=== PATIENT | female | born 1935 | race Caucasian/White ===

== ENCOUNTER → 2023-06-11 12:45 | Outpatient (REF) | payer MEDICARE, OTHER, SELFPAY ==
[2023-06-11 18:17] LABS: % Basophils 0.5 % (0-2); % Eosinophils 0.2 % (0-6); % Immature Granulocytes 0.4 % (0-0.5); % Lymphocytes 9.4 % (20.5-51.1); % Monocytes 7.1 % (1.7-9.3); % Neutrophils 82.4 % (42.2-75.2); Absolute Basophils 0.1 10^3/uL (0-0.2); Absolute Lymphocytes 0.9 10^3/uL (1.2-3.4); Absolute Monocytes 0.7 10^3/uL (0.1-0.6); Absolute Neutrophils 7.5 10^3/uL (1.4-6.5); Hematocrit 36.8 % (37.0-47.0); Hemoglobin 12.5 g/dL (12.0-16.0); Mean Corpuscular Volume 88.2 fL (81.0-99.0); Mean Platelet Volume 10.6 fL (7.4-10.4); Nucleated Red Blood Cells % 0 %; Platelet Count 224 10^3/uL (130-400); Red Blood Cell Count 4.17 10^6/uL (4.20-5.40); Red Cell Dist. Width 14.6 % (11.5-14.5); White Blood Cell Count 9.1 10^3/uL (4.8-10.8)
[2023-06-11 18:25] LABS: ALT (SGPT) 13 U/L (0-35); AST (SGOT) 19 U/L (14-36); Albumin 3.9 g/dl (3.5-5.0); Alkaline Phosphatase 66 U/L (38-126); Blood Urea Nitrogen 28 mg/dl (7-17); Calcium 9.8 mg/dl (8.4-10.2); Carbon Dioxide 25 mmol/L (22-30); Chloride 102 mmol/L (98-107); Glucose 90 mg/dl (70-99); Iron 60 ug/dl (37-170); Sodium 132 mmol/L (135-145); Total Bilirubin 0.6 mg/dl (0.2-1.3); Total Protein 6.1 g/dl (6.3-8.2); eGFR > 60.00
[2023-06-11 18:34] LABS: Percent Saturation 18 % (20-50); Total Iron Binding Capacity 322 ug/dl (265-497)
[2023-06-11 18:47] LABS: Potassium 4.3 mmol/L (3.5-5.1)
[2023-06-11 18:56] LABS: TSH Reflex To Free T4 1.58 uIU/ml (0.47-4.68)
[2023-06-11 19:00] LABS: Ferritin 21.4 ng/ml (11.1-264.0)
== END ==
LOC: CLAB 12:45
PROVIDERS: ATTENDING PHYSICIAN Family Medicine
DX: I10 Essential (primary) hypertension (principal); D50.8 Other iron deficiency anemias
CPT/HCPCS: 80053; 82728; 83540; 83550; 84443; 85025

== ENCOUNTER 2023-08-28 23:03 | Inpatient (IN) | payer MEDICARE, OTHER, SELFPAY ==
[2023-08-28] VITALS (8 sets, daily range): BP systolic 96–109; BP diastolic 57–78; BMI 21.0
[2023-08-28 15:04] LABS: % Basophils 0.2 % (0-2); % Immature Granulocytes 0.5 % (0-0.5); % Lymphocytes 1.5 % (20.5-51.1); % Monocytes 5.3 % (1.7-9.3); % Neutrophils 92.5 % (42.2-75.2); Absolute Immature Granulocytes 0.1 10^3/uL (0-0.05); Absolute Lymphocytes 0.3 10^3/uL (1.2-3.4); Absolute Monocytes 1.2 10^3/uL (0.1-0.6); Absolute Neutrophils 20.6 10^3/uL (1.4-6.5); Hemoglobin 14.3 g/dL (12.0-16.0); Mean Corpuscular Hgb 28.9 pg (27.0-31.0); Mean Platelet Volume 10.5 fL (7.4-10.4); Nucleated Red Blood Cells % 0 %; Platelet Count 347 10^3/uL (130-400); Red Blood Cell Count 4.94 10^6/uL (4.20-5.40); Red Cell Dist. Width 13.8 % (11.5-14.5); White Blood Cell Count 22.3 10^3/uL (4.8-10.8)
[2023-08-28 15:48] LABS: ALT (SGPT) 45 U/L (0-35); AST (SGOT) 94 U/L (14-36); Albumin 4.1 g/dl (3.5-5.0); Alkaline Phosphatase 79 U/L (38-126); Blood Urea Nitrogen 39 mg/dl (7-17); Calcium 9.2 mg/dl (8.4-10.2); Carbon Dioxide 19 mmol/L (22-30); Chloride 105 mmol/L (98-107); Estimated Creatinine Clearance 33 ml/min; Glucose 201 mg/dl (70-99); Potassium 3.8 mmol/L (3.5-5.1); Sodium 136 mmol/L (135-145); Total Bilirubin 1.3 mg/dl (0.2-1.3); Total Protein 6.3 g/dl (6.3-8.2); eGFR 48.33
--- NOTE | 2023-08-28 16:55 | ED.GENMED ---
History of Present Illness
<Windy Christie MD, Resident - Last Filed: 08/28/23 19:59>
General
Chief Complaint: Weakness
Time Seen by Provider: 08/28/23 16:03
History of Present Illness
History of Present Illness:
87-year-old female with history of hypertension, RBBB B and severe AAS presented to the ED with weakness noted by her aide(patient does not recall why her aide made this call and why she is here in the ED). Patient states that Salma who is her
home health might have called the ambulance as the patient was not as alert as she should be. She denies shortness of breath, chest pain, fever, chills, cough, palpitations, dysuria.
Past History
<Windy Christie MD, Resident - Last Filed: 08/28/23 19:59>
Past History
ED Past Medical History: HTN and Other (osteoporosis , Anemia, L arm cellulitis)
ED Past Surgical History: None
Social History
Tobacco: Non-smoker
Alcohol: None
Personal:
Living: alone
Employment: Retired
Family History
Family History: Cancer (Colon cancer)
Phy Exam
<Windy Christie MD, Resident - Last Filed: 08/28/23 19:59>
General Physical Exam
General Presentation: no apparent distress
General Habitus: elderly
General Mental: alert
General Hydration: dry mucous membranes
Cardiovascular Exam
Cardiovascular Exam: regular rate/rhythm
Pulmonary Exam
Pulmonary Exam: lungs clear
Gastrointestinal Exam
Gastrointestinal Exam: normal bowel sounds, non tender and soft
Skin Exam
Skin Exam: warm/dry (warm), erythema and other (bullae with clear fluid present on left upper thigh on lateral side. Erythematous sacral patch)
Course
<Windy Christie MD, Resident - Last Filed: 08/28/23 19:59>
Orders/Labs/Results
Orders:
Orders
08/28/23 14:51
CMP [Comprehensive Metabolic Panel] Urgent
Complete Blood Count/With Diff Urgent
Creatine Phosphokinase Urgent
Comment: ADD ON
08/28/23 16:43
Chest [CR Chest - 2 Views ] Urgent
Comment:
Reason For Exam: confusion
08/28/23 16:48
Add On- LAB Urgent
Tests Added?: lactate
08/28/23 16:51
0.9% Sodium Chloride 250 ml [Nss] 250 ml IV BOLUS
08/28/23 17:54
Lactate Level [Lactic Acid] Urgent
TSH Reflex To Free T4 Urgent
Blood Culture Urgent
ANNIE Source: Blood/Venous
Specimen Description:
08/28/23 18:55
0.9% Sodium Chloride 250 ml [Nss] 250 ml IV BOLUS
08/28/23 19:00
Urine Culture Reflexed from UA [Urinalysis Reflex To Culture] Urgent
Date Specimen was Collected: 08/28/23
Time Specimen was Collected: 18:59
Urine Microscopic Reflex Cult Urgent
Urine Culture Urgent
ANNIE Source: U
Specimen Description:
Date Specimen was Collected: 08/28/23
Time Specimen was Collected: 18:59
08/28/23 19:34
CefTRIAXone [Rocephin] 1,000 mg IV NOW STA
08/28/23 20:04
Add On- LAB Urgent
Tests Added?: CPK
08/28/23 20:14
CT Head W/o Iv Contrast Urgent
Comment:
Reason For Exam: Fall, Change in MS
Abnormal Lab Results
08/28/23 08/28/23
14:51 19:00
WBC 22.3 H 10^3/uL
(4.8-10.8)
MPV 10.5 H fL
(7.4-10.4)
Abs Immat Gran (auto) 0.1 H 10^3/uL
(0-0.05)
Absolute Neuts (auto) 20.6 H 10^3/uL
(1.4-6.5)
Absolute Lymphs (auto) 0.3 L 10^3/uL
(1.2-3.4)
Absolute Monos (auto) 1.2 H 10^3/uL
(0.1-0.6)
Neutrophils % 92.5 H %
(42.2-75.2)
Lymphocytes % 1.5 L %
(20.5-51.1)
Carbon Dioxide 19 L mmol/L
(22-30)
BUN 39 H mg/dl
(7-17)
Creatinine 1.1 H mg/dL
(0.6-1.0)
Glucose 201 H mg/dl
(70-99)
AST 94 H U/L
(14-36)
ALT 45 H U/L
(0-35)
Urine Ketones 2+ A
(Negative)
Ur Occult Blood Reflex 1+ A
(Negative)
Leukocyte Esterase Rfl 2+ A
(Negative)
Urine WBC (Reflex) 70-80 A /HPF
(0-5)
Urine Bacteria (Reflex) Few A
(Negative)
Urine Yeast Few A
(Negative)
08/28/23 14:51
08/28/23 14:51
Vital Signs
Initial and Last Documented VS:
Initial Vital Signs
Temp Pulse Resp BP Pulse Ox
98.5 F 112 18 102/78 97
08/28/23 14:42 08/28/23 14:42 08/28/23 14:42 08/28/23 14:42 08/28/23 14:42
Last Documented Vital Signs
Temp Pulse Resp BP Pulse Ox
98.5 F 84 21 109/64 93
08/28/23 14:42 08/28/23 19:30 08/28/23 19:30 08/28/23 19:00 08/28/23 19:15
<Harley Jarquin, DO - Last Filed: 08/28/23 20:41>
Orders/Labs/Results
Orders:
Orders
08/28/23 14:51
CMP [Comprehensive Metabolic Panel] Urgent
Complete Blood Count/With Diff Urgent
Creatine Phosphokinase Urgent
Comment: ADD ON
08/28/23 16:43
Chest [CR Chest - 2 Views ] Urgent
Comment:
Reason For Exam: confusion
08/28/23 16:48
Add On- LAB Urgent
Tests Added?: lactate
08/28/23 16:51
0.9% Sodium Chloride 250 ml [Nss] 250 ml IV BOLUS
08/28/23 17:54
Lactate Level [Lactic Acid] Urgent
TSH Reflex To Free T4 Urgent
Blood Culture Urgent
ANNIE Source: Blood/Venous
Specimen Description:
08/28/23 18:55
0.9% Sodium Chloride 250 ml [Nss] 250 ml IV BOLUS
08/28/23 19:00
Urine Culture Reflexed from UA [Urinalysis Reflex To Culture] Urgent
Date Specimen was Collected: 08/28/23
Time Specimen was Collected: 18:59
Urine Microscopic Reflex Cult Urgent
Urine Culture Urgent
ANNIE Source: U
Specimen Description:
Date Specimen was Collected: 08/28/23
Time Specimen was Collected: 18:59
08/28/23 19:34
CefTRIAXone [Rocephin] 1,000 mg IV NOW STA
08/28/23 20:04
Add On- LAB Urgent
Tests Added?: CPK
08/28/23 20:14
CT Head W/o Iv Contrast Urgent
Comment:
Reason For Exam: Fall, Change in MS
Abnormal Lab Results
08/28/23 08/28/23
14:51 19:00
WBC 22.3 H 10^3/uL
(4.8-10.8)
MPV 10.5 H fL
(7.4-10.4)
Abs Immat Gran (auto) 0.1 H 10^3/uL
(0-0.05)
Absolute Neuts (auto) 20.6 H 10^3/uL
(1.4-6.5)
Absolute Lymphs (auto) 0.3 L 10^3/uL
(1.2-3.4)
Absolute Monos (auto) 1.2 H 10^3/uL
(0.1-0.6)
Neutrophils % 92.5 H %
(42.2-75.2)
Lymphocytes % 1.5 L %
(20.5-51.1)
Carbon Dioxide 19 L mmol/L
(22-30)
BUN 39 H mg/dl
(7-17)
Creatinine 1.1 H mg/dL
(0.6-1.0)
Glucose 201 H mg/dl
(70-99)
AST 94 H U/L
(14-36)
ALT 45 H U/L
(0-35)
Urine Ketones 2+ A
(Negative)
Ur Occult Blood Reflex 1+ A
(Negative)
Leukocyte Esterase Rfl 2+ A
(Negative)
Urine WBC (Reflex) 70-80 A /HPF
(0-5)
Urine Bacteria (Reflex) Few A
(Negative)
Urine Yeast Few A
(Negative)
08/28/23 14:51
08/28/23 14:51
Vital Signs
Initial and Last Documented VS:
Initial Vital Signs
Temp Pulse Resp BP Pulse Ox
98.5 F 112 18 102/78 97
08/28/23 14:42 08/28/23 14:42 08/28/23 14:42 08/28/23 14:42 08/28/23 14:42
Last Documented Vital Signs
Temp Pulse Resp BP Pulse Ox
98.5 F 84 21 109/64 93
08/28/23 14:42 08/28/23 19:30 08/28/23 19:30 08/28/23 19:00 08/28/23 19:15
<Windy Christie MD, Resident - Last Filed: 08/28/23 19:59>
*Critical Care Note
Total Time (30-74mins, 75-104mins- exclusive of procedures): Not Applicable
<Windy Christie MD, Resident - Last Filed: 08/28/23 19:59>
Update Note
Update Note:
Patient presents to ED with fatigue, confused as noted by the aide.
- Patients WBC is elevated which could be the potential reason for confusion.
- TSH, lactate, CHEST x RAY, blood cultures ordered.
- IV fluid
- Suspect Cellulitis of left LE. Starting on IV Ceftriaxone stat.
-Lactate levels are normal and patient does not look septic however physical examination suspect cellulitis of left lower extremity therefore plan is to admit the patient. Patient is non ambulatory, erythematous sacral skin patch present.
ED Attending Note
<Windy Christie MD, Resident - Last Filed: 08/28/23 19:59>
-
Portions of this chart may have been created with voice recognition software.� Occasional wrong word or��sound alike� substitutions may have occurred due to the inherent limitations of voice recognition software.
<Harley Jarquin DO - Last Filed: 08/28/23 20:41>
ED Attending Note
Patient seen and examined by attending physician: Yes
I performed a history and physical exam of patient and discussed management with resident, I reviewed resident's note and agree with documented findings and plan of care.: Yes
ED Attending Note:
Patient is a 87-year-old female presents to the emergency department on the advice of home health after the patient was found to be have increasing weakness and confusion. Patient does not have fever and really does not have any complaints other
than feeling weak. Patient denies headache. Patient denies fever or chills, nasal congestion, sore throat or cough. Patient denies any chest pain, short shortness of breath or palpitations. Patient denies abdominal pain, nausea, vomiting or
diarrhea. Patient denies any joint or back pain. On physical exam patient is elderly and confused. Head is normocephalic and atraumatic. Heart is regular lungs are clear. Chest is nontender. Abdomen is nontender. Extremities without edema but
skin breakdown and what appears to be cellulitis of the left hip region. Patient has an elevated white blood cell count of 22,000. This is also a shift to left. Patient's liver enzymes are mildly elevated the rest of the patient's laboratory
evaluation is unremarkable. Given the fact the patient has increasing confusion and disorientation and lives on her own. Patient will be admitted for treatment of cellulitis in light of the 22,000 white count.
Discharge Plan
Departure
Patient Disposition: Admit
Date of Disposition: 08/28/23
Time of Disposition: 19:39
Presentation/result/management discussed w/ accepting MD/DO: Hospitalist
Discharge Problem:
Cellulitis
Prescriptions:
No Action
enalapril maleate 10 MG tablet
10 mg PO DAILY
omeprazole 20 mg capsule,delayed release(DR/EC)
20 mg PO DAILY
coenzyme Q10 [Co Q-10] 100 mg Capsule
100 mg PO DAILY
gy-ren-HU-Yb-Ds-axdzbyi-lutein 0.4-162-18 mg Tablet
1 tab PO DAILY
ferrous sulfate 27 mg iron Tablet
27 mg PO DAILY
PreserVision AREDS-2 250-90-40-1 mg Capsule
1 tab PO DAILY
vitamin C-biotin 50 mg -1,250 mcg Tablet,Chewable
1 tab PO DAILY
Colon Health
3 billion cells PO DAILY
Paxlovid 300 mg (150 mg x 2)-100 mg Tablets,Dose Pack
1 ea PO BID Qty: 0 0RF
Rx Instructions:
last day 01/05/23
aspirin [Children's Aspirin] 81 mg Tablet,Chewable
81 mg PO DAILY Qty: 0 0RF
Referrals:
Elly Barnhart MD [Family Provider] -
Interventions
Interventions:
*Risk Screen - Suicide Last Done: 08/28/23 19:52
*General Assessment Last Done: 08/28/23 14:42
*Neglect/Abuse Screening Last Done: 08/28/23 19:52
ED- Fall Risk Assessment Last Done: 08/28/23 18:13
*ED COVID-19 Vaccine History Last Done: 08/28/23 14:42
ED- Cardiac Assessment Last Done: 08/28/23 18:13
ED- Neurological Assessment Last Done: 08/28/23 18:13
ED- Pulmonary Assessment Last Done: 08/28/23 18:13
Discharge Date and Time
Print Language: NIGERIEN
[2023-08-28] MEDS: NSS 250 IV ×2 (17:56→19:07)
[2023-08-28 18:24] LABS: Lactic Acid 1.4 mmol/L (0.7-2.0)
[2023-08-28 18:59] LABS: TSH Reflex To Free T4 1.24 uIU/ml (0.47-4.68)
[2023-08-28 19:07] LABS: Urine Albumin Trace (Neg - Trace); Urine Bilirubin Negative (Negative); Urine Character Clear (Clear); Urine Color Yellow; Urine Glucose Negative (Negative); Urine Ketone 2+ (Negative); Urine Leukocyte 2+ (Negative); Urine Nitrite Negative (Negative); Urine Occult Blood 1+ (Negative); Urine Urobilinogen Negative (Neg - 1+)
[2023-08-28 19:19] LABS: Urine Squamous Cell >30 /LPF (Few)
[2023-08-28 19:20] LABS: Urine Bacteria Few (Negative); Urine White Cell 70-80 /HPF (0-5); Urine Yeast Few (Negative)
[2023-08-28 19:21] LABS: Urine Red Blood Cell 0-2 /HPF (0-2)
--- NOTE | 2023-08-28 19:59 | EDRN ---
Spoke with pt daughter Melonie, states that pt had fall on August 09, EMS was called and pt was checked out. Daughter states that pt had a second fall today prompting caregiver to bring pt in.
[2023-08-28] MEDS: ROCEPHIN 1000 MG IV (20:09)
[2023-08-28 20:47] LABS: Creatine Phosphokinase 1598 U/L (30-135)
--- NOTE | 2023-08-28 22:32 | HPS.HSE ---
Family Physician
-
Family Physician: Elly Barnhart
Chief Complaint
-
Found down
History of Present Illness
Patient is an 87y F with PMH significant for hypertension, dementia and GERD who presents to ED for evaluation after being found down at home. History obtained from ED staff via daughter over the phone. Patient has suffered falls the past two
days and today was found on the floor by her home health aide. Her daughter is currently traveling outside the country.
Patient has no recollection of this fall. The fall was unwitnessed. production aide found that patient seemed more confused than usual and she presented to the ED for evaluation.
At the time of my examination, patient offers no complaints. She specifically denies any pain. She denies chest pain, dyspnea, cough, fevers / chills, etc.
Patient seems confused and is unable to explain why / how she came to be at the hospital.
Medical History
Past Medical History
Past Medical History: Reports Other
Additional Past Medical History:
Severe Aortic Stenosis
Essential Hypertension
PUD / GI Bleed
Osteoporosis
Past Surgical History: Reports Other
Additional Past Surgical History:
Appendectomy
Hernia Repair
Social History
Tobacco: Non-smoker
Alcohol: None
Personal:
Living: Alone
Family History
Family History: Not pertinent
Allergies / Home Medications
Allergies reflects when Allergies were last updated in [facility].
Home Medications with original date entered in [facility]
Allergy/Medication List:
Patient is unable to confirm / verify her current med list.
If medication reconciliation has not been performed, why?: Medication List N/A
Review of Systems
-
History Source: Patient
A 12 point ROS was completed and negative except as noted: Yes
Constitutional: Denies Fever or Chills
Respiratory: Denies Cough or Trouble Breathing
Cardiac: Denies Chest Pain or Palpitations
Abdomen/GI: Denies Abdominal Pain, Nausea, Vomiting or Diarrhea
: Denies Dysuria or Frequency
Musculoskeletal: Denies Joint Pain or Edema
Neurological: Denies Dizzy or Headache
Physical Exam
Vital Signs
Vital Signs
Temp Pulse Resp BP Pulse Ox
98.5 F 84 21 109/64 93
08/28/23 14:42 08/28/23 19:30 08/28/23 19:30 08/28/23 19:00 08/28/23 19:15
Physical Exam
General: Other (87y F in no acute distress.)
HEENT: PERRLA and Other (Dry MM.)
Respiratory: Clear; No Wheezes, Rales or Rhonchi
Cardiac: S1/S2, Regular Rhythm and Murmur (III/ SANJAY)
GI: Soft, Non Tender, Non Distended and Normal Bowel Sounds
Musculoskeletal: No Clubbing, No Cyanosis and Other (No edema. Skin changes suggesting prior degree of edema since improved.)
Skin: Other (Mild erythema and blistering lesion over the L greater trochanter region. Not indurated or tender. Sacral area with superficial breakdown / erythema.)
Neuro: Awake, Alert and Nonfocal/grossly intact; No Oriented
Laboratory Results
-
08/28/23 14:51
08/28/23 14:51
Laboratory Results
Lactic Acid 1.4 mmol/L (0.7-2.0) 08/28/23 17:54
Total Bilirubin 1.3 mg/dl (0.2-1.3) 08/28/23 14:51
AST 94 U/L (14-36) H 08/28/23 14:51
ALT 45 U/L (0-35) H 08/28/23 14:51
Alkaline Phosphatase 79 U/L (38-126) 08/28/23 14:51
Impression/Plan
-
A/P: Patient is an 87y F with PMH significant for hypertension and ? mild dementia who presents to ED for evaluation after being 'found down' by home health aide.
Unwitnessed Fall
Rhabdomyolysis
CASSANDRA
Pigment Nephropathy
- Admit for further evaluation and treatment.
- Fairly significant CPK elevation considering body habitus.
- SCr = 1.1 compared to baseline of 0.6.
- + blood on UA with paucity of RBCs.
- IVF support overnight and follow for improvement in renal function, CPK levels, etc.
- Follow for any worsening pain, etc.
- Hold THONY inhibitor acutely.
- CT head done in the ED given unwitnessed fall and change in mental status was unremarkable.
Leukocytosis
- ? stress response +/- volume depletion, etc.
- No findings to suggest acute infectious process for me.
- Hold on further abx for now.
- Follow-up any positive culture data.
- Monitor for any focal complaints / symptoms.
Wounds
- Skin lesions / erythema / breakdown over the sacrum and the L hip.
- Neither area appears acutely infected - suspect L hip is due to fall / trauma.
- Wound Care eval for local care recommendations.
Benign Hypertension
- BP presently on the lower side.
- Hold all PO meds for now.
- IVF as noted above.
Cognitive Impairment
- Mental status change is described as new, but suspect some degree of baseline impairment here.
- Follow for any acute changes, delirium, etc.
- Follow for return to stated baseline.
DVT Prophylaxis: SCDs
Code Status: DNR
[2023-08-29] VITALS (8 sets, daily range): BP systolic 105–130; BP diastolic 55–82; PULSE 71–90; O2SAT 96; BMI 20.6; BMI 20.2
[2023-08-29] MEDS: NSS 1000 IV ×3 (00:18→19:10)
[2023-08-29] MEDS: TYLENOL 650 MG PO ×2 (03:44→19:32)
--- NOTE | 2023-08-29 05:30 | PTCARENOTE ---
Received pt from ED via stretcher with belongings. Telemetry order: SR w/ BBC on monitor, HR 60-70s, BP 128/61, RR 16, afebrile, pox 98% room air. Pt c/o discomfort to her left hip and left shoulder. Orthostatic BP unable to perform d/t pt's
weakness and pain. NSS infusing at 125ml/hr through RAC. Pt pleasantly confused but easily redirected. Pt asks several times why she is in hospital. Pt states her , age and place correctly (although she states she was informed multiple times that
she is at [facility]). Neurochecks ordered Q4H. Bed alarm in place.
Upon arrival to the floor, pt noticeable disheveled and unkempt. Attends saturated. Hygiene performed.
Pt bladder scanned for 674ml and straight cath for 750ml dark yellow urine. Pt tolerated well.
Skin assessment: Left hip bruising w/ blister- adaptic/ foam applied, Left shoulder abrasion- foam applied, Red/ Purple Ecchymotic areas to pt's left hand, arm, and upper back. Yellow scattered bruising to patients right upper back. Sacrum w/ foam
(applied in ED) that this RN removed to assess a pressure ulcer Stage 2, pink wound bed, small serosanguineous drainage- Alginate and foam applied. Bilateral heels- nonblanchable- foams applied and elevated on pillows. Foams applied to both elbows
for protection. Air overlay in place. Pt placed on turning schedule.
Pt states that she lives alone. Salma, from [facility], come out twice a week for ADLs and appointments. Pt states she receives frozen meals from a local [employer]. Pt's daughter lives in [place]. According to External medical summary
report pg 4, pt was referred Palliative care. PMH obtained by hospital records. Pt unsure of medications.
Pt oriented to her room. Call morris within reach.
[2023-08-29 07:39] LABS: Mean Corp Hgb Conc. 34.5 g/dL (33.0-37.0); Mean Corpuscular Hgb 29.1 pg (27.0-31.0); Mean Corpuscular Volume 84.2 fL (81.0-99.0); Mean Platelet Volume 10.7 fL (7.4-10.4); Platelet Count 260 10^3/uL (130-400); Red Blood Cell Count 3.92 10^6/uL (4.20-5.40); Red Cell Dist. Width 13.7 % (11.5-14.5); White Blood Cell Count 9.4 10^3/uL (4.8-10.8)
[2023-08-29] MEDS: HEPARIN 5000 UNITS SC ×2 (07:57→19:31)
[2023-08-29 08:12] LABS: Blood Urea Nitrogen 41 mg/dl (7-17); Calcium 8.2 mg/dl (8.4-10.2); Carbon Dioxide 22 mmol/L (22-30); Chloride 112 mmol/L (98-107); Creatine Phosphokinase 740 U/L (30-135); Estimated Creatinine Clearance 50 ml/min; Glucose 92 mg/dl (70-99); Potassium 3.5 mmol/L (3.5-5.1); Sodium 137 mmol/L (135-145); eGFR > 60.00
[2023-08-29 08:34] LABS: Hemoglobin 11.4 g/dL (12.0-16.0)
--- NOTE | 2023-08-29 09:39 | W.PN.HOSP.TC ---
Today's Communication/Plan
-
see A/P
Assessment / Plan
Assessment / Plan
HPI: 87 yo F with PMH significant for hypertension, dementia, GERD who presented to ED for evaluation after being found down at home. History obtained from ED staff via daughter over the phone. Patient has suffered falls the past two days and was
found on the floor by her home health aid. Her daughter is currently traveling outside the country.
Patient has no recollection of the fall. The fall was unwitnessed. production aide found that patient seemed more confused than usual and she presented to the ED for evaluation.
She denies to pain. She denies chest pain, dyspnea, cough, fevers / chills, etc.
Patient seemed confused and is unable to explain why / how she came to be at the hospital.
A/P:
# Unwitnessed Fall and found on floor
# Rhabdomyolysis
# CASSANDRA, resolved
# Pigment Nephropathy
CT head done in the ED given unwitnessed fall and change in mental status was unremarkable.
CPK 1500 on admission, today at 740
SCr 1.1 on admission, today at 0.7 which is at baseline
Cont IVF support
Follow CPK level
Hold THONY inhibitor acutely.
PT OT eval
# Reactive Leukocytosis, resolved
No findings to suggest acute infectious process for me.
Hold on further abx for now.
Follow-up on urine and blood culture data.
# Skin Wounds
Skin lesions / erythema / breakdown over the sacrum and the L hip.
Neither area appears acutely infected - suspect L hip is due to fall / trauma.
Wound Care eval for local care recommendations.
# Benign Hypertension
BP presently on the lower side.
Hold all PO meds for now.
IVF as noted above.
# Cognitive Impairment, likely undiagnosed dementia
CT head done in the ED given unwitnessed fall and change in mental status was unremarkable.
She is awake/alert, but not orientated
Mental status change is described as new, but suspect some degree of baseline impairment.
Follow for any acute changes, delirium, etc.
Follow for return to stated baseline.
# Systolic murmur
Check routine echo
DVT Prophylaxis: SCDs
Code Status: DNR
Dispo: PT OT eval
Anticipated Discharge: 24 - 48 hours
Subjective/Interval History
-
Date of Service: August 29, 2023
Objective Data
-
Labs:
Laboratory Results
08/29/23
06:33
WBC 9.4
Hgb 11.4 L D
Hct 33.0 L
Plt Count 260 D
Sodium 137
Potassium 3.5
Chloride 112 H
Carbon Dioxide 22
BUN 41 H
Creatinine 0.7
Glucose 92
Calcium 8.2 L
Vital Signs:
Vital Signs
Temp Pulse Resp BP Pulse Ox
36.4 C 66 18 109/57 95
08/29/23 07:10 08/29/23 07:10 08/29/23 07:10 08/29/23 07:10 08/29/23 07:10
I&O
08/28/23 08/29/23 08/30/23
06:59 06:59 06:59
Intake Total 625 / 625
Output Total 750 / 750 750 / 750
Balance -125 / -125 -750 / -750
Review of Systems
-
Unable to obtain full review of systems at this time due to: Dementia
All other systems: Reviewed and negative
Physical Exam
-
General: Well Developed, Well Nourished, No Apparent Distress, Comfortable, Conversant and Appears Chronically Ill; Negative Respiratory Distress
HEENT: Normocephalic, Atraumatic, Nose Appears Normal and Ears Appear Normal; Negative Oxygen
Respiratory: Clear to Auscultation and Non Labored Respirations; Negative Accessory Resp Muscle Use
Cardiac: Regular Rhythm, S1/S2 and Murmur
GI: Soft, Nontender, Nondistended and Normal Bowel Sounds
Skin: Warm and Dry
Neuro: Awake and Alert
Psych: Calm and Apparent Dementia
Data Reviewed
-
CT Scan: Report Reviewed by me
Labs: Labs Reviewed by me
[2023-08-29] MEDS: KCL 40 MEQ PO (10:56)
--- NOTE | 2023-08-29 16:15 | PTOTSP ---
ST Acute Care Evaluation
Pt presents with possibly slight pharyngeal dysphagia characterized by infrequent coughing with liquids.
Pt also presents with a cognitive impairment with a known hx of dementia. It is difficult to differentiate whether pt is at baseline - more information needed at this time.
Recommendations:
- Continue with regular solids, thin liquids, meds as tolerated.
- Aspiration precautions: HOB upright for all PO intake, encourage pt to take one sip at a time and to eat slowly.
- GLAZING MACHINE OPERATOR to f/u to ensure pt is safely consuming recommended diet consistencies, to determine if further objective swallowing assessment is necessary, and to monitor cognitive function to determine if further assessment is warranted at this time.
[2023-08-29] MEDS: SENOKOT 17.2 MG PO (21:34)
[2023-08-30] VITALS (8 sets, daily range): BP systolic 110–150; BP diastolic 59–106; PULSE 67–103; BMI 21.5
[2023-08-30] MEDS: NSS 1000 IV (03:02)
[2023-08-30 05:25] LABS: Hematocrit 32.3 % (37.0-47.0); Hemoglobin 10.8 g/dL (12.0-16.0); Mean Corp Hgb Conc. 33.4 g/dL (33.0-37.0); Mean Corpuscular Hgb 28.6 pg (27.0-31.0); Mean Corpuscular Volume 85.4 fL (81.0-99.0); Platelet Count 232 10^3/uL (130-400); Red Blood Cell Count 3.78 10^6/uL (4.20-5.40); Red Cell Dist. Width 13.7 % (11.5-14.5); White Blood Cell Count 6.3 10^3/uL (4.8-10.8)
[2023-08-30 05:55] LABS: Blood Urea Nitrogen 30 mg/dl (7-17); Calcium 7.9 mg/dl (8.4-10.2); Carbon Dioxide 22 mmol/L (22-30); Chloride 112 mmol/L (98-107); Creatine Phosphokinase 291 U/L (30-135); Estimated Creatinine Clearance 61 ml/min; Glucose 93 mg/dl (70-99); Magnesium 2.2 mg/dl (1.6-2.3); Potassium 3.6 mmol/L (3.5-5.1); Sodium 135 mmol/L (135-145); eGFR > 60.00
[2023-08-30] MEDS: HEPARIN 5000 UNITS SC (07:30)
[2023-08-30] MEDS: TYLENOL 650 MG PO (07:38)
--- NOTE | 2023-08-30 09:39 | CM ---
Initial assessment was attempted at bedside, though presents with confusion and poor historian. FRANCISCO JAVIER followed up with call to friend, Ingris on 08/29/23. SW spoke with daughter who lives in [facility] via phone on 08/30/23 for additional information.
Pt is an 87yr old female admitted with Rhabdo and CASSANDRA
At baseline, pt lives alone in a 2 story home with a ramp to enter. Pt has a 2nd floor bath and bed. Pt has 2 RW(1 upstairs and 1 downstairs), raised toilet seat with bars, and a shower with bars and chair (though primarily doing sink baths).
Per Ingris, pt is mostly independent at home. She does have an aide who comes Wed/Thu 12-4p weekly from [facility] who checks on wellbeing and aides with errands and housekeeping.
Per Ingris, meals are mostly oven ready and provided by her faith or picked up from the store by her aide; pt does not use the microwave.
FRANCISCO JAVIER asked if Assisted Living was ever discussed due to increase of falls and confusion, but Ingris says that Hannah does not want to leave her home.
Pt was seen by PT who recommends SNF. [facility] to [facility] and [facility].
PCP; Nancy Barnhart
Pharm;
PLAN; SNF, referrals sent
[2023-08-30] MEDS: MIRALAX 17 GRAMS PO (10:37)
--- NOTE | 2023-08-30 11:08 | W.PN.HOSP.TC ---
Today's Communication/Plan
-
see A/P
Assessment / Plan
Assessment / Plan
HPI: 87 yo F with PMH significant for hypertension, dementia, GERD who presented to ED for evaluation after being found down at home. History obtained from ED staff via daughter over the phone. Patient has suffered falls the past two days and was
found on the floor by her home health aid. Her daughter is currently traveling outside the country.
Patient has no recollection of the fall. The fall was unwitnessed. help aid found that patient seemed more confused than usual and she presented to the ED for evaluation.
She denies to pain. She denies chest pain, dyspnea, cough, fevers / chills, etc.
Patient seemed confused and is unable to explain why / how she came to be at the hospital.
A/P:
# Unwitnessed Fall and found on floor
# Rhabdomyolysis, resolving
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
CT head done in the ED given unwitnessed fall and change in mental status was unremarkable.
CPK 1500 on admission, today at 291
SCr 1.1 on admission, today at 0.5 which is at baseline
Off IVF support
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
PT OT recc SNF
# Reactive Leukocytosis, resolved
No findings to suggest acute infectious process for me.
Hold on further abx for now.
Follow-up on urine and blood culture data.
# Skin Wounds
Skin lesions / erythema / breakdown over the sacrum and the L hip.
Neither area appears acutely infected - suspect L hip is due to fall / trauma.
Wound Care eval for local care recommendations.
# Benign Hypertension
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
# Cognitive Impairment
CT head done in the ED given unwitnessed fall and change in mental status was unremarkable.
Follow for any acute changes, delirium, etc.
MS appear to have returned to baseline, awake and conversant.
# Systolic murmur
Check routine echo
DVT Prophylaxis: lovenox SQ
Code Status: DNR
Dispo: PT OT recc SNF
DW pt's beverage steward at bedside
Anticipated Discharge: 24 - 48 hours
Subjective/Interval History
-
Date of Service: August 30, 2023
Objective Data
-
Labs:
Laboratory Results
08/30/23
05:12
WBC 6.3
Hgb 10.8 L
Hct 32.3 L
Plt Count 232
Sodium 135
Potassium 3.6
Chloride 112 H
Carbon Dioxide 22
BUN 30 H
Creatinine 0.5 L
Glucose 93
Calcium 7.9 L
Vital Signs:
Vital Signs
Temp Pulse Resp BP Pulse Ox
36.7 C 67 18 123/70 99
08/30/23 07:19 08/30/23 07:19 08/30/23 07:19 08/30/23 07:19 08/30/23 07:19
I&O
08/29/23 08/30/23 08/31/23
06:59 06:59 06:59
Intake Total 625 / 625 3710 / 3710
Output Total 750 / 750 1500 / 1500
Balance -125 / -125 2210 / 2210
Review of Systems
-
All other systems: Reviewed and negative
Physical Exam
-
General: Well Developed, Well Nourished, No Apparent Distress, Comfortable and Conversant; Negative Respiratory Distress
HEENT: Normocephalic, Atraumatic, Nose Appears Normal and Ears Appear Normal; Negative Oxygen
Respiratory: Clear to Auscultation and Non Labored Respirations; Negative Accessory Resp Muscle Use
Cardiac: Regular Rhythm, S1/S2 and Murmur (systolic)
GI: Soft, Nontender, Nondistended and Normal Bowel Sounds
Skin: Warm and Dry
Neuro: Awake and Alert
Psych: Calm
Data Reviewed
-
CT Scan: Report Reviewed by me
Labs: Labs Reviewed by me
[2023-08-30] MEDS: LOVENOX 40 MG SC (17:45)
[2023-08-30] MEDS: SENOKOT PO (23:35)
[2023-08-31] VITALS (9 sets, daily range): BP systolic 108–172; BP diastolic 65–100; PULSE 68–125; O2SAT 96; BMI 21.8
[2023-08-31 08:12] LABS: Hematocrit 37.1 % (37.0-47.0); Hemoglobin 12.9 g/dL (12.0-16.0); Mean Corp Hgb Conc. 34.8 g/dL (33.0-37.0); Mean Corpuscular Hgb 28.4 pg (27.0-31.0); Mean Corpuscular Volume 81.7 fL (81.0-99.0); Mean Platelet Volume 10.7 fL (7.4-10.4); Platelet Count 203 10^3/uL (130-400); Red Blood Cell Count 4.54 10^6/uL (4.20-5.40); Red Cell Dist. Width 13.8 % (11.5-14.5)
[2023-08-31] MEDS: VASOTEC 10 MG PO (08:45)
[2023-08-31 09:15] LABS: Blood Urea Nitrogen 15 mg/dl (7-17); Calcium 8.9 mg/dl (8.4-10.2); Carbon Dioxide 22 mmol/L (22-30); Chloride 109 mmol/L (98-107); Creatine Phosphokinase 196 U/L (30-135); Estimated Creatinine Clearance 61 ml/min; Glucose 101 mg/dl (70-99); Magnesium 2.1 mg/dl (1.6-2.3); Potassium 4.2 mmol/L (3.5-5.1); Sodium 136 mmol/L (135-145); eGFR > 60.00
--- NOTE | 2023-08-31 09:50 | WOUNDNOTE ---
[facility] RN note: Patient admitted with rhabdomyolysis, CASSANDRA. Patient lives alone and was found on her floor by her hired aid. Plan is SNF rehab when discharged.
See H&P for complete history.
PMH: HTN, dementia, recent falls, severe aortic stenosis, PUD/GI bleed, appendectomy, hernia repair.
Wound Location and type/assessment: Patient admitted with: L shoulder, sacral/buttocks, L hip stage 2 pressure injuries vs evolving DTI. L shoulder pink and ecchymotic red. Sacral buttocks pink with linear dark red/faint purple ecchymotic crease. L
hip pink, ecchymotic red with serous blisters. Patient also admitted with stage 1 R heel pressure injury and blanchable red L heel and R shoulder.
Appetite: on regular diet.
Pressure redistribution devices in place: Waffle air overlay, air chair cushion. Patient can turn self in bed.
Plan: L shoulder, L hip and sacral dressings changed. Protective foam dressings changed on heels. Heels off bed with pillow. Instructed patient pressure injury prevention measures.
Will confirm orders with Dr. Coffey.
Care plan to be updated and will follow as needed.
Note to case management of equipment requested for discharge: Air mattress at SNF.
Recommend follow up at wound care center upon discharge.
[2023-08-31 11:31] LABS: Urine Albumin Negative (Neg - Trace); Urine Bilirubin Negative (Negative); Urine Character Very Cloudy (Clear); Urine Color Straw; Urine Glucose Negative (Negative); Urine Ketone Negative (Negative); Urine Leukocyte 2+ (Negative); Urine Nitrite Negative (Negative); Urine Occult Blood 1+ (Negative); Urine Urobilinogen Negative (Neg - 1+)
[2023-08-31 11:45] LABS: Urine Squamous Cell >30 /LPF (Few)
[2023-08-31 11:47] LABS: Urine Bacteria Few (Negative); Urine White Cell 30-40 /HPF (0-5); Urine Yeast Few (Negative)
--- NOTE | 2023-08-31 14:40 | W.PN.HOSP.TC ---
Today's Communication/Plan
-
DC planning to SNF
Assessment / Plan
Assessment / Plan
HPI: 87 yo F with PMH significant for hypertension, dementia, GERD who presented to ED for evaluation after being found down at home. History obtained from ED staff via daughter over the phone. Patient has suffered falls the past two days and was
found on the floor by her home health aid. Her daughter is currently traveling outside the country.
Patient has no recollection of the fall. The fall was unwitnessed. computer aided design designer found that patient seemed more confused than usual and she presented to the ED for evaluation.
She denies to pain. She denies chest pain, dyspnea, cough, fevers / chills, etc.
Patient seemed confused and is unable to explain why / how she came to be at the hospital.
Assessment:
Unwitnessed Fall and found on floor
traumatic Rhabdomyolysis, resolving
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
- CT head negative
- CPK improving post-IVF, CASSANDRA resolved
- PT/OT - SNF recommended
Reactive Leukocytosis, resolved
- holding Abx pending cultures
Essential Hypertension
- continue THONY
Cognitive Impairment
- CT head done in the ED given unwitnessed fall and change in mental status was unremarkable.
- Follow for any acute changes, delirium, etc.
- MS appear to have returned to baseline, awake and conversant.
Systolic murmur
- check routine echo
L shoulder, sacral/buttocks, L hip stage 2 pressure injuries vs evolving DTI. L shoulder pink and ecchymotic red. Sacral buttocks pink with linear dark red/faint purple ecchymotic crease. L hip pink, ecchymotic red with serous blisters. Patient also
admitted with stage 1 R heel pressure injury and blanchable red L heel and R shoulder.
- wound care following
DVT ppx: Lovenox
Code: DNR
Anticipated Discharge: > 48 hours
Subjective/Interval History
-
Date of Service: August 31, 2023
denies any new complaints currently
Objective Data
-
Labs:
Laboratory Results
08/31/23
07:43
WBC 6.0
Hgb 12.9
Hct 37.1
Plt Count 203
Sodium 136
Potassium 4.2
Chloride 109 H
Carbon Dioxide 22
BUN 15
Creatinine 0.5 L
Glucose 101 H
Calcium 8.9
Vital Signs:
Vital Signs
Temp Pulse Resp BP Pulse Ox
98.1 F 88 18 143/81 98
08/31/23 11:00 08/31/23 11:00 08/31/23 11:00 08/31/23 11:00 08/31/23 11:00
I&O
08/30/23 08/31/23 09/01/23
06:59 06:59 06:59
Intake Total 3710 / 3710 1260 / 1260
Output Total 1500 / 1500
Balance 2210 / 2210 1260 / 1260
Data Reviewed
-
Total Time Spent with Patient (in minutes): 45
Labs: Labs Reviewed by me
--- NOTE | 2023-08-31 17:02 | CM ---
Discharge Plan of Care: SNF for STR. [facility] has accepted pending bed availability.
--- NOTE | 2023-08-31 17:12 | WOUNDNOTE ---
[facility] RN note: Matias rodriguesed Welcome Wagon Hostess Tiana Patterson re: recommend air mattress at SNF for Hannah Pelaez. She has a stage 2 sacral and L hip pressure injuries.
[2023-08-31] MEDS: LOVENOX 40 MG SC (18:02)
[2023-08-31] MEDS: SENOKOT PO (23:41)
[2023-09-01] VITALS (8 sets, daily range): BP systolic 121–174; BP diastolic 59–96; PULSE 79–104; BMI 20.4
--- NOTE | 2023-09-01 03:05 | PTCARENOTE ---
pt had multiple trips to bsc w/ small to moderate amount of urine output during each attempt throughout the day. pt c/o of feeling full after last last attempt to bsc. pt bladder scanned for 1440ml. WATCH ELECTRICIAN notified. 16f case placed per order. output
of 1200 shanice urine. will monitor.
[2023-09-01 05:55] LABS: % Basophils 0.5 % (0-2); % Eosinophils 1.5 % (0-6); % Immature Granulocytes 0.3 % (0-0.5); % Lymphocytes 9.5 % (20.5-51.1); % Monocytes 6.5 % (1.7-9.3); % Neutrophils 81.7 % (42.2-75.2); Absolute Eosinophils 0.1 10^3/uL (0-0.7); Absolute Lymphocytes 0.8 10^3/uL (1.2-3.4); Absolute Monocytes 0.6 10^3/uL (0.1-0.6); Absolute Neutrophils 7.3 10^3/uL (1.4-6.5); Hematocrit 35.8 % (37.0-47.0); Mean Corp Hgb Conc. 33.5 g/dL (33.0-37.0); Mean Corpuscular Hgb 28.6 pg (27.0-31.0); Mean Corpuscular Volume 85.2 fL (81.0-99.0); Mean Platelet Volume 10.6 fL (7.4-10.4); Nucleated Red Blood Cells % 0 %; Platelet Count 230 10^3/uL (130-400); White Blood Cell Count 8.9 10^3/uL (4.8-10.8)
[2023-09-01 06:33] LABS: Blood Urea Nitrogen 18 mg/dl (7-17); Calcium 9.1 mg/dl (8.4-10.2); Carbon Dioxide 27 mmol/L (22-30); Chloride 105 mmol/L (98-107); Estimated Creatinine Clearance 59 ml/min; Glucose 101 mg/dl (70-99); Potassium 3.8 mmol/L (3.5-5.1); Sodium 137 mmol/L (135-145); eGFR > 60.00
[2023-09-01] MEDS: VASOTEC 10 MG PO (08:12)
--- NOTE | 2023-09-01 13:33 | W.PN.HOSP.TC ---
Today's Communication/Plan
-
continue Mosley, plan to DC with Mosley
DC Planning to a SNF
Patient is medically stable
Assessment / Plan
Assessment / Plan
HPI: 87 yo F with PMH significant for hypertension, dementia, GERD who presented to ED for evaluation after being found down at home. History obtained from ED staff via daughter over the phone. Patient has suffered falls the past two days and was
found on the floor by her home health aid. Her daughter is currently traveling outside the country.
Patient has no recollection of the fall. The fall was unwitnessed. restorative rehab aide found that patient seemed more confused than usual and she presented to the ED for evaluation.
She denies to pain. She denies chest pain, dyspnea, cough, fevers / chills, etc.
Patient seemed confused and is unable to explain why / how she came to be at the hospital.
Assessment:
Unwitnessed Fall and found on floor
traumatic Rhabdomyolysis, resolving
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
- CT head negative
- CPK improving post-IVF, CASSANDRA resolved
- PT/OT - SNF recommended
Acute Urinary retention
- continue Mosley, plan to DC with Mosley
Reactive Leukocytosis, resolved
- Urine cultures without isolated growth x 2
- monitor
Essential Hypertension
- continue THONY
Cognitive Impairment
- CT head done in the ED given unwitnessed fall and change in mental status was unremarkable.
- Follow for any acute changes, delirium, etc.
- MS appear to have returned to baseline, awake and conversant.
Systolic murmur
- Echo: Normal biventricular size and systolic function without regional wall motion abnormality. Estimated LVEF 60-65%. Stage II diastolic dysfunction suggestive of abnormal relaxation and increased filling pressures. Moderate mitral regurgitation.
Severe aortic stenosis. Peak/mean gradients are 76/51mmHg. The valve area by continuity equation is 0.5cm sq, using a LVOT of 1.9cm. Trace aortic regurgitation.
L shoulder, sacral/buttocks, L hip stage 2 pressure injuries vs evolving DTI. L shoulder pink and ecchymotic red. Sacral buttocks pink with linear dark red/faint purple ecchymotic crease. L hip pink, ecchymotic red with serous blisters. Patient also
admitted with stage 1 R heel pressure injury and blanchable red L heel and R shoulder.
- wound care following
DVT ppx: Lovenox
Code: DNR
Anticipated Discharge: 24 - 48 hours
Subjective/Interval History
-
Date of Service: September 01, 2023
urinary retention overnight, required Mosley, draining yellow urine
no new complaints
Objective Data
-
Labs:
Laboratory Results
09/01/23
04:59
WBC 8.9
Hgb 12.0
Hct 35.8 L
Plt Count 230
Sodium 137
Potassium 3.8
Chloride 105
Carbon Dioxide 27
BUN 18 H
Creatinine 0.5 L
Glucose 101 H
Calcium 9.1
Vital Signs:
Vital Signs
Temp Pulse Resp BP Pulse Ox
98.4 F 79 18 132/72 98
09/01/23 11:43 09/01/23 11:43 09/01/23 11:43 09/01/23 11:43 09/01/23 11:43
I&O
08/31/23 09/01/23 09/02/23
06:59 06:59 06:59
Intake Total 1260 / 1260 780 / 780
Output Total 1650 / 1650
Balance 1260 / 1260 -870 / -870
Physical Exam
-
General: No Apparent Distress
HEENT: Normocephalic and Atraumatic
Respiratory: Negative Wheezes or Rales
Cardiac: Regular Rhythm and S1/S2
GI: Soft and Nontender
Genito-urinary: Mosley
Neuro: AO x 3
Psych: Calm
Data Reviewed
-
Total Time Spent with Patient (in minutes): 42
Labs: Labs Reviewed by me
--- NOTE | 2023-09-01 14:44 | CM ---
Reviewed the chart notes and spoke with the patient at the bedside. Reviewed with the patient the facilities she previously was interested in have jcarlos beds available. Permission to send to additional facilities obtained and referrals with
completed PASRR sent via [facility]. CM continues to be available to patient/family and is monitoring medical plan for needs at discharge.
Plan: Discharge to SNF/rehab once bed found.
[2023-09-01] MEDS: LOVENOX 40 MG SC (18:16)
--- NOTE | 2023-09-01 18:24 | PTCARENOTE ---
Pt unable to stand for orthostatic vital signs with assist of RN and tech.
[2023-09-01] MEDS: SENOKOT 17.2 MG PO (21:05)
[2023-09-02 03:00] VITALS: BP 114/51
--- NOTE | 2023-09-02 04:19 | DOWNTIME ---
There was a [employer] Client Type Photography Supervisor Downtime on 09/02/2023 from 0100 to 09/02/2023 at 0255. Downtime documentation of patient's care, including medication administrations, has been reconciled in the electronic record per guidelines. Refer to the
patient's paper chart under the miscellaneous tab to see printed paper medication records and downtime forms.
[2023-09-02 06:00] VITALS: BMI 21.3
[2023-09-02 07:05] VITALS: BP 128/57; BP 136/63; BP 161/88; PULSE 72; PULSE 83; PULSE 91
[2023-09-02 07:10] VITALS: BP 128/57
[2023-09-02] MEDS: VASOTEC 10 MG PO (08:11)
[2023-09-02] MEDS: TYLENOL 650 MG PO (08:37)
--- NOTE | 2023-09-02 08:49 | CM ---
IMM signed and placed on chart.
--- NOTE | 2023-09-02 11:04 | CM ---
SHRUTHI flowing re: discharge planning.
Reviewed pt's chart, met with pt.
According to pt is medically stable to be discharged today. Pt is aware, expressed her agreement. IMM reviewed, placed on chart, pt has a copy.
SHRUTHI spoke to [facility] content director Shakira [phone] and she confirmed that pt is accepted for admission today.
Pt is aware that [facility] accepted for a short term rehab. Pt expressed her agreement with going to [facility].
Transportation arranged by with Acute care ambulance with pickle water pump operator time 2:00 p.m. [facility] completed and left with .
[facility] nursing report: [phone]
Discharge instructions fax: [phone]
D/C plan: [facility]
--- NOTE | 2023-09-02 11:07 | W.PN.HOSP.TC ---
Today's Communication/Plan
-
dc to SNF
TOV in 7-10 days at SNF
Assessment / Plan
Assessment / Plan
HPI: 87 yo F with PMH significant for hypertension, dementia, GERD who presented to ED for evaluation after being found down at home. History obtained from ED staff via daughter over the phone. Patient has suffered falls the past two days and was
found on the floor by her home health aid. Her daughter is currently traveling outside the country.
Patient has no recollection of the fall. The fall was unwitnessed. medical aides teacher found that patient seemed more confused than usual and she presented to the ED for evaluation.
She denies to pain. She denies chest pain, dyspnea, cough, fevers / chills, etc.
Patient seemed confused and is unable to explain why / how she came to be at the hospital.
Assessment:
Unwitnessed Fall and found on floor
traumatic Rhabdomyolysis, resolving
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
- CT head negative
- CPK improving post-IVF, CASSANDRA resolved
- PT/OT - SNF recommended
Acute Urinary retention
- continue Mosley, plan to DC with Mosley
Reactive Leukocytosis, resolved
- Urine cultures without isolated growth x 2
- monitor
Essential Hypertension
- continue THONY
Cognitive Impairment
- CT head done in the ED given unwitnessed fall and change in mental status was unremarkable.
- Follow for any acute changes, delirium, etc.
- MS appear to have returned to baseline, awake and conversant.
Systolic murmur
- Echo: Normal biventricular size and systolic function without regional wall motion abnormality. Estimated LVEF 60-65%. Stage II diastolic dysfunction suggestive of abnormal relaxation and increased filling pressures. Moderate mitral regurgitation.
Severe aortic stenosis. Peak/mean gradients are 76/51mmHg. The valve area by continuity equation is 0.5cm sq, using a LVOT of 1.9cm. Trace aortic regurgitation.
L shoulder, sacral/buttocks, L hip stage 2 pressure injuries vs evolving DTI. L shoulder pink and ecchymotic red. Sacral buttocks pink with linear dark red/faint purple ecchymotic crease. L hip pink, ecchymotic red with serous blisters. Patient also
admitted with stage 1 R heel pressure injury and blanchable red L heel and R shoulder.
- wound care following
DVT ppx: Lovenox
Code: DNR
More than 30 minutes spent in discharge including
Final examination of the patient
Summarizing hospital stay
Instructions for continuing care to all relevant caregivers
Preparation of discharge records, prescriptions, and referral forms
Total time spent (in minutes):42
Anticipated Discharge: Today
Subjective/Interval History
-
Date of Service: September 02, 2023
no new complaints
for DC to SNF today
Objective Data
-
Vital Signs:
Vital Signs
Temp Pulse Resp BP Pulse Ox
98.2 F 93 16 128/57 96
09/02/23 07:10 09/02/23 08:11 09/02/23 07:10 09/02/23 08:11 09/02/23 07:10
I&O
09/01/23 09/02/23 09/03/23
06:59 06:59 06:59
Intake Total 780 / 780 1380 / 1380
Output Total 1650 / 1650 2675 / 2675
Balance -870 / -870 -1295 / -1295
Physical Exam
-
General: No Apparent Distress
HEENT: Normocephalic and Atraumatic
Respiratory: Negative Wheezes
Cardiac: Regular Rhythm and S1/S2
GI: Soft and Nontender
Genito-urinary: No Costovertebral Tender
Musculoskeletal: No Edema
Neuro: AO x 3
Psych: Calm
Data Reviewed
-
Total Time Spent with Patient (in minutes): 45
Labs: Labs Reviewed by me
--- NOTE | 2023-09-02 11:10 | W.DS.TRANS ---
DC Summary - Hospital Sales Representative
-
Discharge Instructions:
Discharge Diagnosis/Procedures CASSANDRA, rhabdomyolysis, urinary retention
Diet Regular
Activity As tolerated
Other Services OT,PT
Instructions:
Stand-Alone Forms:
Changes to Home Medications: No
Discharge Medications:
DC Medications w/original date entered in [employer]
enalapril maleate 10 mg tablet 10 mg PO DAILY Blood Pressure 07/21/09
Colon Health 3 billion cells PO DAILY Supplement 12/31/22
coenzyme Q10 100 mg capsule (Co Q-10) 100 mg PO DAILY Supplement 12/31/22
ferrous sulfate 27 mg iron tablet 27 mg PO DAILY Supplement 12/31/22
micjtzno-vgb-HP 0.4 mg-calcium 162 mg-iron 18 ex-vcwwbmt-zetqfq tablet 1 tab PO DAILY Supplement 12/31/22
omeprazole 20 mg capsule,delayed release 20 mg PO DAILY GERD 12/31/22
vit C 250 mg-vit E 90 mg-zinc 40 mg-copper 1 rp-jazyuj-mvcjmn capsule (PreserVision AREDS-2) 1 tab PO DAILY Supplement 12/31/22
vitamin C 50 mg-biotin 1,250 mcg chewable tablet 1 tab PO DAILY Supplement 12/31/22
aspirin 81 mg chewable tablet (Children's Aspirin) 81 mg PO DAILY Blood Clot Prevention/Tx 08/29/23
polyethylene glycol 3350 17 gram oral powder packet (HealthyLax) 17 g PO DAILY PRN Constipation #30 ea 09/02/23
sennosides 8.6 mg tablet (Senna Laxative) 17.2 mg (2 x 8.6 mg) PO HS #100 tabs 09/02/23
Home Medication Changes
Pending Results: No
Total time spent discharging patient (in min): 42
[2023-09-02 11:15] VITALS: BP 108/56
== END 2023-09-02 14:49 | DRG 565 ==
LOC: 2 NORTH 23:03
PROVIDERS: Emergency Medicine; Internal Medicine; Student in an Organized Health Care Education/Training Program; ADMITTING PHYSICIAN Hospitalist; ATTENDING PHYSICIAN Internal Medicine; EMERGENCY PHYSICIAN Emergency Medicine; FAMILY PHYSICIAN Family Medicine
DX: T79.6XXA Traumatic ischemia of muscle, initial encounter (principal); M62.82 Rhabdomyolysis; N17.9 Acute kidney failure, unspecified; R33.9 Retention of urine, unspecified; F03.90 Unspecified dementia, unspecified severity, without behavioral disturbance, psychotic disturbance, mood disturbance, and anxiety; L89.152 Pressure ulcer of sacral region, stage 2; L89.222 Pressure ulcer of left hip, stage 2; L89.322 Pressure ulcer of left buttock, stage 2; L89.312 Pressure ulcer of right buttock, stage 2; L89.611 Pressure ulcer of right heel, stage 1; L89.892 Pressure ulcer of other site, stage 2; Z66 Do not resuscitate; X58.XXXA Exposure to other specified factors, initial encounter
CPT/HCPCS: 51701; 70450; 71046; 80048; 80053; 81003; 81015; 82550; 83605; 83735; 84443; 85025; 85027; 87040; 87086; 92526; 92610; 93306; 96361; 96374; 97162; 97166; 97530; 97535; 99285

== ENCOUNTER 2024-01-02 11:51 | Emergency (ER) | payer MEDICARE, OTHER, SELFPAY ==
[2024-01-02] VITALS (7 sets, daily range): BP systolic 90–124; BP diastolic 61–89; BMI 21.2
[2024-01-02 12:14] LABS: % Basophils 0.9 % (0-2); % Eosinophils 1.1 % (0-6); % Immature Granulocytes 0.4 % (0-0.5); % Lymphocytes 12.8 % (20.5-51.1); % Monocytes 7.1 % (1.7-9.3); % Neutrophils 77.7 % (42.2-75.2); Absolute Basophils 0.1 10^3/uL (0-0.2); Absolute Eosinophils 0.1 10^3/uL (0-0.7); Absolute Lymphocytes 1.1 10^3/uL (1.2-3.4); Absolute Monocytes 0.6 10^3/uL (0.1-0.6); Absolute Neutrophils 6.6 10^3/uL (1.4-6.5); Hematocrit 39.5 % (37.0-47.0); Hemoglobin 13.5 g/dL (12.0-16.0); Mean Corp Hgb Conc. 34.2 g/dL (33.0-37.0); Mean Corpuscular Hgb 28.5 pg (27.0-31.0); Mean Corpuscular Volume 83.5 fL (81.0-99.0); Mean Platelet Volume 9.7 fL (7.4-10.4); Nucleated Red Blood Cells % 0 %; Platelet Count 286 10^3/uL (130-400); Red Blood Cell Count 4.73 10^6/uL (4.20-5.40); White Blood Cell Count 8.5 10^3/uL (4.8-10.8)
[2024-01-02 12:34] LABS: ALT (SGPT) 14 U/L (0-35); AST (SGOT) 20 U/L (14-36); Albumin 3.8 g/dl (3.5-5.0); Alkaline Phosphatase 66 U/L (38-126); Blood Urea Nitrogen 18 mg/dl (7-17); Calcium 9.9 mg/dl (8.4-10.2); Carbon Dioxide 25 mmol/L (22-30); Chloride 97 mmol/L (98-107); Estimated Creatinine Clearance 62 ml/min; Glucose 124 mg/dl (70-99); Magnesium 2.2 mg/dl (1.6-2.3); Potassium 4.3 mmol/L (3.5-5.1); Sodium 134 mmol/L (135-145); Total Bilirubin 0.5 mg/dl (0.2-1.3); Total Protein 6.1 g/dl (6.3-8.2); eGFR > 60.00
[2024-01-02 12:42] LABS: Troponin I 0.016 ng/ml
--- NOTE | 2024-01-02 15:20 | ED.GENMED ---
History of Present Illness
General
Chief Complaint: Heart Rate Problem
Source: patient and ambulance crew
Time Seen by Provider: 01/02/24 12:05
History of Present Illness
History of Present Illness:
88-year-old female who states she is only here because someone noticed her heart rate to be fast. Patient states she feels fine. She offers no complaints. She denies chest pain or shortness of breath. Denies palpitations. EMS found her to be in
SVT that resolved spontaneously. Patient denies any other complaints.
Past History
Past History
ED Past Medical History: HTN, NV, Valvular disease and Other (osteoporosis , Anemia, L arm cellulitis, cataracts, GI bleed, GERD, right bundle branch block)
ED Past Surgical History: None
Social History
Tobacco: Non-smoker
Alcohol: None
Personal:
Living: alone
Employment: Retired
Family History
Family History: Cancer (Colon cancer)
Phy Exam
Physical Exam
Physical Exam:
CONSTITUTIONAL Patient alert and oriented to person, place and time. Well-appearing. Vital signs reviewed.
HEAD atraumatic, normocephalic.
EYES eyelids normal to inspection, Extraocular muscles intact, Conjunctiva normal, Sclera normal.
NECK normal range of motion, Trachea midline, no jugular venous distention.
RESPIRATORY CHEST No respiratory distress noted, Chest expansion equal, Bilateral breath sounds clear.
CARDIOVASCULAR regular rate and rhythm, systolic ejection murmur noted, heart rate 92 on exam
ABDOMEN abdomen nontender, Bowel sounds normal. No distention.
BACK normal inspection, no obvious deformities
UPPER EXTREMITY range of motion normal, Motor strength normal, no cyanosis, no edema.
LOWER EXTREMITY range of motion normal, Motor strength normal, no cyanosis, no edema.
NEURO Speech normal, No focal motor deficits, Rudyard coma scale 15, Memory normal, Cranial Nerves intact to screening exam.
SKIN skin warm, dry, and normal in color.
Course
Orders/Labs/Results
Orders:
Orders
01/02/24 11:55
Electrocardiogram (*1) Urgent
Reason for Study: Abnormal EKG
01/02/24 11:56
EKG- Treatment ONCE
01/02/24 12:02
Complete Blood Count/With Diff Urgent
Comprehensive Metabolic Panel Urgent
Magnesium Urgent
Troponin I Urgent
Abnormal Lab Results
01/02/24
12:02
RDW 16.0 H %
(11.5-14.5)
Absolute Neuts (auto) 6.6 H 10^3/uL
(1.4-6.5)
Absolute Lymphs (auto) 1.1 L 10^3/uL
(1.2-3.4)
Neutrophils % 77.7 H %
(42.2-75.2)
Lymphocytes % 12.8 L %
(20.5-51.1)
Sodium 134 L mmol/L
(135-145)
Chloride 97 L mmol/L
(98-107)
BUN 18 H mg/dl
(7-17)
Glucose 124 H mg/dl
(70-99)
Total Protein 6.1 L g/dl
(6.3-8.2)
01/02/24 12:02
01/02/24 12:02
Vital Signs
Initial and Last Documented VS:
Initial Vital Signs
BP
104/66
01/02/24 11:55
Last Documented Vital Signs
Temp Pulse Resp BP Pulse Ox
97.6 F 100 21 104/89 96
01/02/24 11:56 01/02/24 15:09 01/02/24 15:09 01/02/24 15:09 01/02/24 14:30
MDM/Problems Addressed
MDM/Problems Addressed:
SVT
*Pulse Oximetry
Patient hypoxic: no
*EKG
Interpreted by ED Provider?: Yes
Interpretation: abnormal
Rate: normal
Rhythm: sinus
QRS Pattern: right bundle branch block
Ischemia: no ischemia
*Resource Economist Interpretation
Rate: normal
Interpretation: normal
Rhythm: sinus
*Critical Care Note
Total Time (30-74mins, 75-104mins- exclusive of procedures): Not Applicable
Data Reviewed
Review of Other/Old Records Reveals: Testing (Prior echocardiogram reviewed)
Source: patient
Prescriptions/Medications Considered But Not Given:
Considered AV blockers but blood pressure tenuous and patient has remained in normal sinus rhythm.
Patient Management
Escalation/DeEscalation of care consider admission/obs:
SVT broke without intervention. Labs unremarkable. Has remained in normal sinus rhythm during telemetry monitoring. Okay for discharge
ED Attending Note
-
Portions of this chart may have been created with voice recognition software.� Occasional wrong word or��sound alike� substitutions may have occurred due to the inherent limitations of voice recognition software.
Discharge Plan
Departure
Patient Disposition: Home (Routine Discharge)
Date of Disposition: 01/02/24
Time of Disposition: 15:20
Patient with high blood pressure during this ER visit?: No
Discharge Problem:
SVT (supraventricular tachycardia)
Instructions: Supraventricular tachycardia (SVT)
Prescriptions:
No Action
enalapril maleate 10 MG tablet
10 mg PO DAILY
omeprazole 20 mg capsule,delayed release(DR/EC)
20 mg PO DAILY
coenzyme Q10 [Co Q-10] 100 mg Capsule
100 mg PO DAILY
xb-fcu-EU-Ah-Af-bramefs-lutein 0.4-162-18 mg Tablet
1 tab PO DAILY
ferrous sulfate 27 mg iron Tablet
27 mg PO DAILY
PreserVision AREDS-2 250-90-40-1 mg Capsule
1 tab PO DAILY
vitamin C-biotin 50 mg -1,250 mcg Tablet,Chewable
1 tab PO DAILY
Colon Health
3 billion cells PO DAILY
aspirin [Children's Aspirin] 81 mg tablet,chewable
81 mg PO DAILY
sennosides [Senna Laxative] 8.6 mg Tablet
17.2 mg PO HS Qty: 100 0RF
polyethylene glycol 3350 [HealthyLax] 17 gram Powder In Packet
17 g PO DAILY PRN (Reason: Constipation) Qty: 30 0RF
acetaminophen 325 mg Tablet
650 mg PO Q4HPRN PRN (Reason: Mild Pain / Temp > 101) Qty: 60 0RF
Referrals:
Josh Renee MD [Active] -
Elly Barnhart MD [Family Provider] -
Activity Restrictions/Additional Instructions:
Please see your doctor and cardiology in the next 1 week for follow-up and reevaluation. Return immediately for chest pain, shortness of breath, palpitations, weakness or any other concerns.
Interventions
Interventions:
*Risk Screen - Suicide Last Done: 01/02/24 11:57
*General Assessment Last Done: 01/02/24 11:57
*Neglect/Abuse Screening Last Done: 01/02/24 11:57
*ED COVID-19 Vaccine History Last Done: 01/02/24 11:57
ED- Cardiac Assessment Last Done: 01/02/24 12:00
ED- Pulmonary Assessment Last Done: 01/02/24 12:00
Discharge Date and Time
Print Language: AMERICAN
== END 2024-01-02 16:40 ==
LOC: EMR 11:51
PROVIDERS: EMERGENCY PHYSICIAN Emergency Medicine; FAMILY PHYSICIAN Family Medicine
DX: I47.10 Supraventricular tachycardia, unspecified (principal); I10 Essential (primary) hypertension; I25.2 Old myocardial infarction; K21.9 Gastro-esophageal reflux disease without esophagitis
CPT/HCPCS: 99284; 80053; 83735; 84484; 85025; 93005

== ENCOUNTER 2024-04-14 08:27 | Emergency (ER) | payer MEDICARE, OTHER, SELFPAY ==
[2024-04-14 08:31] VITALS: BP 106/70
[2024-04-14 08:59] LABS: % Basophils 0.3 % (0-2); % Eosinophils 0.2 % (0-6); % Immature Granulocytes 0.7 % (0-0.5); % Lymphocytes 6.1 % (20.5-51.1); % Monocytes 6.8 % (1.7-9.3); % Neutrophils 85.9 % (42.2-75.2); Absolute Immature Granulocytes 0.1 10^3/uL (0-0.05); Absolute Lymphocytes 0.7 10^3/uL (1.2-3.4); Absolute Monocytes 0.8 10^3/uL (0.1-0.6); Absolute Neutrophils 10.4 10^3/uL (1.4-6.5); Hematocrit 37.4 % (37.0-47.0); Hemoglobin 12.9 g/dL (12.0-16.0); Mean Corp Hgb Conc. 34.5 g/dL (33.0-37.0); Mean Corpuscular Hgb 29.2 pg (27.0-31.0); Mean Corpuscular Volume 84.6 fL (81.0-99.0); Mean Platelet Volume 9.7 fL (7.4-10.4); Nucleated Red Blood Cells % 0 %; Platelet Count 319 10^3/uL (130-400); Red Blood Cell Count 4.42 10^6/uL (4.20-5.40); Red Cell Dist. Width 14.2 % (11.5-14.5); White Blood Cell Count 12.1 10^3/uL (4.8-10.8)
[2024-04-14 09:05] LABS: COVID-19 Antigen Negative (Negative)
[2024-04-14 09:10] LABS: ALT (SGPT) 50 U/L (0-35); AST (SGOT) 48 U/L (14-36); Albumin 3.3 g/dl (3.5-5.0); Alkaline Phosphatase 121 U/L (38-126); Blood Urea Nitrogen 18 mg/dl (7-17); Calcium 10.2 mg/dl (8.4-10.2); Carbon Dioxide 25 mmol/L (22-30); Chloride 99 mmol/L (98-107); Glucose 129 mg/dl (70-99); Potassium 4.1 mmol/L (3.5-5.1); Sodium 132 mmol/L (135-145); Total Protein 5.8 g/dl (6.3-8.2); eGFR > 60.00
--- NOTE | 2024-04-14 09:15 | ED.GENMED ---
History of Present Illness
General
Chief Complaint: Breathing Problem
Source: patient and ambulance crew
Time Seen by Provider: 04/14/24 08:52
History of Present Illness
History of Present Illness:
88-year-old female sent to the emergency room for increased confusion, fall. Patient is being treated for bronchitis. Med list indicates the patient's been receiving nebs at clindamycin. Patient offers no complaints but she does carry a diagnosis
of dementia.
Past History
Past History
ED Past Medical History: HTN, DC, Valvular disease and Other (osteoporosis , Anemia, L arm cellulitis, cataracts, GI bleed, GERD, right bundle branch block)
ED Past Surgical History: None
Social History
Tobacco: Non-smoker
Alcohol: None
Personal:
Living: alone
Employment: Retired
Family History
Family History: Cancer (Colon cancer)
Phy Exam
Physical Exam
Physical Exam:
General: Awake, Alert, pleasantly confused
Vitals: unremarkable
Head: Atraumatic
Eyes: Pupils equal, EOMI
Throat: Airway intact, no exudates
Neck: Trachea midline
Lungs: Few expiratory wheezes
Heart: Regular rate, no murmurs
Abd: Soft, Nontender, No pulsatile mass
Neuro: Nonfocal
Skin: Warm, dry, no rash
Extremities: pulses equal b/l, no edema
Scores
Heart Failure Risk
Heart Failure Risk Score: Not Applicable
Course
Orders/Labs/Results
Orders:
Orders
04/14/24 08:42
CR Chest - 2 Views Urgent
Comment:
Reason For Exam: cough
04/14/24 08:44
COVID-19 Antigen Urgent
Source: Nasal Swab
Complete Blood Count/With Diff Urgent
Comprehensive Metabolic Panel Urgent
Influenza A+B Rapid Molecular Urgent
ANNIE Source: Nasal Swab
Specimen Description:
04/14/24 09:14
Ipratropium/Albuterol Sulfate [Duoneb] 3 ml INH R NOW STA
04/14/24 09:15
Straight cath- Treatment ONCE
04/14/24 09:18
CT Head W/o Iv Contrast Urgent
Comment:
Reason For Exam: confusion, fall
04/14/24 10:22
Urinalysis Reflex To Culture Urgent
Date Specimen was Collected: 04/14/24
Time Specimen was Collected: 09:54
Urine Microscopic Reflex Cult Urgent
Urine Culture Urgent
ANNIE Source: U
Specimen Description:
Date Specimen was Collected: 04/14/24
Time Specimen was Collected: 09:54
Abnormal Lab Results
04/14/24 04/14/24
08:44 10:22
WBC 12.1 H 10^3/uL
(4.8-10.8)
Abs Immat Gran (auto) 0.1 H 10^3/uL
(0-0.05)
Absolute Neuts (auto) 10.4 H 10^3/uL
(1.4-6.5)
Absolute Lymphs (auto) 0.7 L 10^3/uL
(1.2-3.4)
Absolute Monos (auto) 0.8 H 10^3/uL
(0.1-0.6)
Immature Gran % 0.7 H %
(0-0.5)
Neutrophils % 85.9 H %
(42.2-75.2)
Lymphocytes % 6.1 L %
(20.5-51.1)
Sodium 132 L mmol/L
(135-145)
BUN 18 H mg/dl
(7-17)
Glucose 129 H mg/dl
(70-99)
AST 48 H U/L
(14-36)
ALT 50 H U/L
(0-35)
Total Protein 5.8 L g/dl
(6.3-8.2)
Albumin 3.3 L g/dl
(3.5-5.0)
Ur Occult Blood Reflex 4+ A
(Negative)
Leukocyte Esterase Rfl 3+ A
(Negative)
Urine RBC 90-100 A /HPF
(0-2)
Urine WBC (Reflex) 80-90 A /HPF
(0-5)
Urine Bacteria (Reflex) Many A
(Negative)
Urine Albumin (Reflex) 2+ A
(Neg - Trace)
04/14/24 08:44
04/14/24 08:44
Vital Signs
Initial and Last Documented VS:
Initial Vital Signs
Temp Pulse Resp BP Pulse Ox
98.3 F 83 16 106/70 95
04/14/24 08:31 04/14/24 08:31 04/14/24 08:31 04/14/24 08:31 04/14/24 08:31
Last Documented Vital Signs
Temp Pulse Resp BP Pulse Ox
98.3 F 83 16 106/70 95
04/14/24 08:31 04/14/24 08:31 04/14/24 08:31 04/14/24 08:31 04/14/24 09:07
MDM/Problems Addressed
Differential Diagnosis Includes:
Viral illness, pneumonia, UTI
MDM/Problems Addressed:
Patient presents after 6 appear to be somewhat confused compared to baseline. She evidently was diagnosed with bronchitis and started on clindamycin. COVID and flu are negative here. Urine is suggestive of a urinary tract infection chest x-ray
unremarkable. Labs show a very mild elevation of her AST and ALT. Previous measurements have been occasionally elevated. She does not have any abdominal pain. Overall symptoms would be consistent with urinary tract infection. Recommend stopping
clindamycin will start Levaquin which would cover UTI and potential sources. Patient's not unstable and I do not believe would benefit from hospitalization in fact she is likely to become more confused with a change in environment.
*Radiology
Radiology exam reviewed: radiology read reviewed
*Pulse Oximetry
Patient hypoxic: no
*Critical Care Note
Total Time (30-74mins, 75-104mins- exclusive of procedures): Not Applicable
ED Attending Note
-
Portions of this chart may have been created with voice recognition software.� Occasional wrong word or��sound alike� substitutions may have occurred due to the inherent limitations of voice recognition software.
Discharge Plan
Departure
Patient Disposition: Correction/SNF
Date of Disposition: 04/14/24
Time of Disposition: 11:50
Condition: Good
Discharge Problem:
Acute UTI, Fall
Instructions: Urinary tract infections in adults, Fall Prevention for Older Adults
Prescriptions:
New
levofloxacin 750 mg tablet
750 mg PO DAILY 7 Days Qty: 7 0RF
No Action
omeprazole 20 mg capsule,delayed release(DR/EC)
20 mg PO DAILY
coenzyme Q10 [Co Q-10] 100 mg Capsule
100 mg PO DAILY
PreserVision AREDS-2 250-90-40-1 mg Capsule
1 tab PO DAILY
aspirin [Children's Aspirin] 81 mg tablet,chewable
81 mg PO DAILY
ipratropium-albuterol [DuoNeb] 0.5 mg-3 mg(2.5 mg base)/3 mL Solution For Nebulization
3 ml INHALATION R TID
clindamycin HCl 300 mg Capsule
300 mg PO TID
Rx Instructions:
for 7 days starting 04/07/24
sennosides-docusate sodium [Senna-S] 8.6-50 mg Tablet
2 tab-cap PO DAILYPRN PRN (Reason: constipation)
guaifenesin [Robitussin] 100 mg/5 mL Liquid
300 mg PO QID
ferrous sulfate 325 mg (65 mg iron) Tablet
325 mg PO BID
vitamin B complex [B Complete] Tablet
1 tab PO DAILY
Saccharomyces boulardii [Florastor] 250 mg Capsule
250 mg PO DAILY
metoprolol tartrate 25 mg Tablet
12.5 mg PO BID
acetaminophen 325 mg tablet
650 mg PO Q6HPRN PRN (Reason: Mild Pain / Temp > 101)
Referrals:
Misa Castañeda CRNP [Family Provider] -
Activity Restrictions/Additional Instructions:
Pt found to have a urinalysis suggestive of a UTI. Stop clindamycin. Start Levaquin which is 750mg once a day for a week pending urine culture results. This will cover potential causes for a urinary tract infection as well as any possible lung
infection.
Interventions
Interventions:
*Risk Screen - Suicide Last Done: 04/14/24 08:31
*General Assessment Last Done: 04/14/24 08:31
*Neglect/Abuse Screening Last Done: 04/14/24 08:31
ED- Fall Risk Assessment Last Done: 04/14/24 09:07
ED- Cardiac Assessment Last Done: 04/14/24 09:07
ED- Pulmonary Assessment Last Done: 04/14/24 09:07
Discharge Date and Time
Print Language: [place] CITIZ[place]
[2024-04-14] MEDS: DUONEB 3 ML INH (10:19)
[2024-04-14 10:31] LABS: Urine Albumin 2+ (Neg - Trace); Urine Bilirubin Negative (Negative); Urine Character Clear (Clear); Urine Color Yellow; Urine Glucose Negative (Negative); Urine Ketone Negative (Negative); Urine Leukocyte 3+ (Negative); Urine Nitrite Negative (Negative); Urine Occult Blood 4+ (Negative); Urine Specific Gravity 1.025 (<1.030); Urine Urobilinogen Negative (Neg - 1+)
[2024-04-14 11:41] LABS: Urine Amorphous Seen; Urine White Cell 80-90 /HPF (0-5)
[2024-04-14 11:42] LABS: Urine Red Blood Cell 90-100 /HPF (0-2)
[2024-04-14 11:43] LABS: Urine Bacteria Many (Negative)
[2024-04-14 14:20] VITALS: BP 114/92
== END 2024-04-14 15:00 ==
LOC: EMR 08:27
PROVIDERS: EMERGENCY PHYSICIAN Emergency Medicine; FAMILY PHYSICIAN Nurse Practitioner Family
DX: N39.0 Urinary tract infection, site not specified (principal); W19.XXXA Unspecified fall, initial encounter; F03.90 Unspecified dementia, unspecified severity, without behavioral disturbance, psychotic disturbance, mood disturbance, and anxiety; I11.9 Hypertensive heart disease without heart failure; I38 Endocarditis, valve unspecified; K21.9 Gastro-esophageal reflux disease without esophagitis; I45.10 Unspecified right bundle-branch block; D64.9 Anemia, unspecified; Z80.0 Family history of malignant neoplasm of digestive organs
CPT/HCPCS: 99284; 94640; 70450; 71046; 80053; 81003; 81015; 85025; 87086; 87088; 87502; 87811

== ENCOUNTER 2024-04-18 08:19 | Inpatient (IN) | payer MEDICARE, OTHER, SELFPAY ==
[2024-04-15] VITALS (7 sets, daily range): BP systolic 105–134; BP diastolic 67–84; BMI 20.3; BMI 21.1
[2024-04-15 13:34] LABS: % Basophils 0.4 % (0-2); % Eosinophils 0.3 % (0-6); % Immature Granulocytes 0.6 % (0-0.5); % Lymphocytes 6.2 % (20.5-51.1); % Monocytes 6.8 % (1.7-9.3); % Neutrophils 85.7 % (42.2-75.2); Absolute Basophils 0.1 10^3/uL (0-0.2); Absolute Immature Granulocytes 0.1 10^3/uL (0-0.05); Absolute Lymphocytes 0.8 10^3/uL (1.2-3.4); Absolute Monocytes 0.9 10^3/uL (0.1-0.6); Hematocrit 39.6 % (37.0-47.0); Mean Corp Hgb Conc. 32.8 g/dL (33.0-37.0); Mean Corpuscular Hgb 28.8 pg (27.0-31.0); Mean Corpuscular Volume 87.8 fL (81.0-99.0); Mean Platelet Volume 9.6 fL (7.4-10.4); Nucleated Red Blood Cells % 0 %; Platelet Count 318 10^3/uL (130-400); Red Blood Cell Count 4.51 10^6/uL (4.20-5.40); Red Cell Dist. Width 14.3 % (11.5-14.5); White Blood Cell Count 12.8 10^3/uL (4.8-10.8)
[2024-04-15 13:46] LABS: ALT (SGPT) 114 U/L (0-35); AST (SGOT) 93 U/L (14-36); Albumin 3.4 g/dl (3.5-5.0); Alkaline Phosphatase 212 U/L (38-126); Blood Urea Nitrogen 26 mg/dl (7-17); Calcium 9.6 mg/dl (8.4-10.2); Carbon Dioxide 26 mmol/L (22-30); Chloride 100 mmol/L (98-107); Estimated Creatinine Clearance 45 ml/min; Glucose 139 mg/dl (70-99); Potassium 4.2 mmol/L (3.5-5.1); Sodium 134 mmol/L (135-145); Total Bilirubin 0.8 mg/dl (0.2-1.3); Total Protein 5.9 g/dl (6.3-8.2); eGFR > 60.00
[2024-04-15] MEDS: LOPRESSOR 5 MG IV (14:04)
[2024-04-15] MEDS: LOPRESSOR 25 MG PO ×2 (14:04→22:54)
--- NOTE | 2024-04-15 15:19 | ED.GENMED ---
History of Present Illness
General
Chief Complaint: Cardiac Symptoms
Source: patient and detention
Exam Limitations: dementia
Time Seen by Provider: 04/15/24 13:44
History of Present Illness
History of Present Illness:
Patient with history of dementia, presents to ED from detention after unwitnessed fall. Unfortunately, when paramedics arrived at scene, patient was found to be in SVT, for which she was given Cardizem 5 mg IV with improved heart rate, along
with IV fluids. Upon arrival, patient is alert and awake, and has no complaints. Denies headache. Denies neck pain. Denies chest pain. Denies abdominal pain. However, patient is complaining of back pain and left hip pain. Patient unsure of
why she fell.
Past History
Past History
ED Past Medical History: HTN, CO, Valvular disease and Other (osteoporosis , Anemia, L arm cellulitis, cataracts, GI bleed, GERD, right bundle branch block)
ED Past Surgical History: None
Social History
Tobacco: Non-smoker
Alcohol: None
Personal:
Living: alone
Employment: Retired
Family History
Family History: Cancer (Colon cancer)
Review of Systems
Review of Systems
Allergies reviewed?: Yes
Unable to obtain full review of systems at this time due to: dementia
All Other Systems: Not applicable
Phy Exam
Physical Exam
Physical Exam:
Physical Exam
General: mild distress, not acutely ill. afebrile
Head: nc/at. eomi
Neck: supple. normal range of motion.
Heart: s1/s2 regular rate and rhythm, no murmur.
Lungs: no acute respiratory distress. clear bilaterally
Abdomen: normal bowel sounds. not tender.
Back: mild diffuse lower back tenderness to palpation, without midline tenderness.
Neuro: alert and oriented x 1. no focal neurological deficits
Skin: resolving ecchymosis at different healing stages noted in shoulders/back/leg/arm
Psychiatric: well kept. interactive and cooperative
Extremities: mild left hip tenderness with range of motion, without ecchymosis/swelling/erythema/deformity.
Course
Orders/Labs/Results
Orders:
Orders
04/15/24 Breakfast
Cholesterol Lowering
At Your Request: Full Participation
Cholesterol Lowering: Sodium, 2 Gram
04/15/24 13:15
Electrocardiogram (*1) Urgent
Reason for Study: Chest Pain
04/15/24 13:16
Complete Blood Count/With Diff Urgent
Comprehensive Metabolic Panel Urgent
04/15/24 13:47
Metoprolol [Lopressor] 25 mg .ROUTE .STK-MED ONE
Metoprolol [Lopressor] 5 mg .ROUTE .STK-MED ONE
04/15/24 13:53
Metoprolol [Lopressor] 25 mg PO NOW STA
Metoprolol [Lopressor] 5 mg IV NOW STA
04/15/24 15:14
0.9% Sodium Chloride 250 ml [Nss] 250 ml IV BOLUS
04/15/24 15:23
Acetaminophen [Tylenol] 650 mg PO NOW STA
04/15/24 15:24
CR Hip - LT w/wo Pel 2-3 Vw* Urgent
Comment:
Reason For Exam: trauma
Include a pelvis x-ray?: Yes
CR Lumbar Spine Comp Min 4 Vw* Urgent
Comment:
Reason For Exam: trauma
04/15/24 17:44
Admit/Transfer Patient As Directed
Co-Sign Provider:
Level of Care: Observation services
Assign to:: Telemetry
Physician / Group: aaron
Diagnosis: SVT/fall
Reason for Telemetry: Arrhythmia
Date to Stop Telemetry: 04/18/24
Time to Stop Telemetry: 11:00
PRN Pain Medication Management As Directed
May give lesser potent ordered pain med per pt: Yes
preference::
Protocol:: Medication orders for pain may be administered in a
manner that supports deferring to patient preference
when the pt is:
- Requesting an ordered lesser potent pain medication.
Least to most potent pain medications are defined
as: acetaminophen < NSAID < tramadol < opioids
(morphine, oxycodone, hydromorphone).
- Requesting a lesser dose of the same medication IF
ORDERED.
- Requesting a less intrusive route of administration
if both routes are prescribed by the provider (PO <
IV).
04/15/24 17:46
Code Status As Directed
Resuscitation Status: Do not resuscitate
Reached after discussion with pt or family/Healthcare POA: Yes
04/15/24 17:49
DNR Bracelet Application ONCE
04/15/24 17:52
Troponin I Stat
04/15/24 22:00
Acetaminophen [Tylenol] 1,000 mg PO TID
04/15/24 22:06
0.9% Sodium Chloride 1000 ml [Nss] 1,000 ml IV 80 mls/hr
Bisacodyl [Dulcolax] 10 mg RECTAL [id number] PRN
Docusate W/Senna [Senokot-S] 1 tablet PO BIDPRN PRN
Enoxaparin Sodium [Lovenox] 40 mg SC QPM
Ferrous Sulfate [Feosol] 325 mg PO BID
Ipratropium/Albuterol Sulfate [Duoneb] 3 ml INH R TID
Metoprolol [Lopressor] 25 mg PO BID
Polyethylene Glycol Powder [Miralax] 17 grams PO DAILYPRN PRN
04/15/24 22:06
Activity As Directed
Activity Level: As Tolerated
Orthostatic Vital Signs As Directed
Orthostatic VS Frequency: BID
Vital Signs As Directed
Frequency: Per unit guidelines
DX Deep Vein Thrombosis Video Routine
04/16/24 06:00
Occupational Therapy Consult [Ot Eval And Treat] IN AM
Physical Therapy Consult [Pt Eval And Treat] IN AM
Activity Level: As Tolerated
04/16/24 07:21
Basic Metabolic Panel IN AM
Cardiovascular Evaluation IN AM
Complete Blood Count/No Diff IN AM
Magnesium IN AM
TSH Reflex To Free T4 IN AM
04/16/24 08:00
Aspirin Chewable [Low Strength Aspirin] 81 mg PO DAILY
Pantoprazole [Protonix] 40 mg PO DAILY
Saccharomyces Boulardii [Florastor] 250 mg PO DAILY
Vit C/Vit E/Lutein/Min/[place]-3 [Ocuvite Softgel] 1 cap PO DAILY
Vitamin B Complex with C [B COMPLEX w/VITAMIN C] 1 caplet PO DAILY
04/17/24 06:00
Basic Metabolic Panel IN AM
04/17/24 08:00
LevoFLOXacin [Levaquin] 750 mg PO Q48H
04/18/24 06:00
Basic Metabolic Panel IN AM
04/18/24 11:00
DC Protocol for Telemetry ONCE
Abnormal Lab Results
04/15/24
13:16
WBC 12.8 H 10^3/uL
(4.8-10.8)
MCHC 32.8 L g/dL
(33.0-37.0)
Abs Immat Gran (auto) 0.1 H 10^3/uL
(0-0.05)
Absolute Neuts (auto) 11.0 H 10^3/uL
(1.4-6.5)
Absolute Lymphs (auto) 0.8 L 10^3/uL
(1.2-3.4)
Absolute Monos (auto) 0.9 H 10^3/uL
(0.1-0.6)
Immature Gran % 0.6 H %
(0-0.5)
Neutrophils % 85.7 H %
(42.2-75.2)
Lymphocytes % 6.2 L %
(20.5-51.1)
Sodium 134 L mmol/L
(135-145)
BUN 26 H mg/dl
(7-17)
Glucose 139 H mg/dl
(70-99)
AST 93 H U/L
(14-36)
ALT 114 H U/L
(0-35)
Alkaline Phosphatase 212 H U/L
(38-126)
Total Protein 5.9 L g/dl
(6.3-8.2)
Albumin 3.4 L g/dl
(3.5-5.0)
04/15/24 13:16
04/15/24 13:16
Vital Signs
Initial and Last Documented VS:
Initial Vital Signs
Temp Pulse Resp Pulse Ox
98.6 F 94 32 94
04/15/24 13:17 04/15/24 13:17 04/15/24 13:17 04/15/24 13:17
Last Documented Vital Signs
Temp Pulse Resp BP Pulse Ox
97.6 F 75 18 127/72 98
04/16/24 07:40 04/16/24 07:42 04/16/24 07:42 04/16/24 07:40 04/16/24 08:20
MDM/Problems Addressed
MDM/Problems Addressed:
Patient with fluctuating heart rate noted during observation, reaching as high as 190 bpm, without any symptoms, consistent with narrow complex tachycardia, likely SVT. In reviewing patient's records, patient has been evaluated on multiple
occasions with SVT. In addition, patient has had multiple falls in the past requiring evaluation in ED, explaining multiple healing wounds in her body. In light of patient's unwitnessed fall along with back and leg pain, will obtain x-ray of
lumbar spine and hip.
Patient given Lopressor IV 5 mg, along with metoprolol 20 mg p.o., without any further episodes of tachycardia.
X-ray: T10 compression fx. Pt with persistent pain despite treatment.
Pt will be admitted for further evaluation and treatment, including PT evaluation and cardiology evaluation with recurrent episodes of SVT.
*Critical Care Note
Total Time (30-74mins, 75-104mins- exclusive of procedures): Not Applicable
ED Attending Note
-
Portions of this chart may have been created with voice recognition software.� Occasional wrong word or��sound alike� substitutions may have occurred due to the inherent limitations of voice recognition software.
Discharge Plan
Departure
Patient Disposition: Admit
Date of Disposition: 04/15/24
Time of Disposition: 16:36
Admit to doctor: Gianfranco
Presentation/result/management discussed w/ accepting MD/DO: Hospitalist
Patient with high blood pressure during this ER visit?: Yes
Discharge Problem:
SVT (supraventricular tachycardia), Back pain, Compression fracture of T10 vertebra
Interventions
Interventions:
*Risk Screen - Suicide Last Done: 04/15/24 22:34
*General Assessment Last Done: 04/15/24 13:17
*Neglect/Abuse Screening Last Done: 04/15/24 13:17
ED- Fall Risk Assessment Last Done: 04/15/24 13:17
*ED COVID-19 Vaccine History Last Done: 04/15/24 22:34
*Nursing Disposition Last Done: 04/15/24 21:02
ED- Pulmonary Assessment Last Done: 04/15/24 13:17
ED- Cardiac Assessment Last Done: 04/15/24 13:17
Discharge Date and Time
Discharge Date/Time: 04/15/24 21:02
[2024-04-15] MEDS: TYLENOL 650 MG PO (16:09)
--- NOTE | 2024-04-15 17:25 | HPS.HSE ---
Addendum entered and electronically signed by Rajinder Putnam MD 04/15/24 17:58:
I saw and examined the patient.
The PRISON KEEPER's note was reviewed and I agree with the note.
Comment:
88-year-old female past medical history of dementia, hypertension, suspected ambulatory dysfunction, osteopenia was presented from jail after she was found to be unwitnessed falls. EMS arrival patient was found to be in SVT and received IV
Cardizem. In the ER patient with intermittent SVT and received IV medication. Patient was also complaining of back pain. Patient is currently alert and confused. Patient is unsure how she fell.
General: In no acute distress, cachectic
HEENT: NormoCephalic, Moist mucous membranes and Atraumatic
Respiratory: Clear
Cardiac: S1/S2 and Regular Rhythm; No Murmur or Rub
GI: Soft, Non Tender, Non Distended and Normal Bowel Sounds; No Organomegaly
Rectal: Deferred by Provider
Musculoskeletal: No Clubbing, No Cyanosis and No Edema
Skin: No Rash
Neuro: Nonfocal/grossly intact, apparent dementia
Psych: Confused
Impression
Ambulatory dysfunction
T10 chronic compression fracture
SVT
Primary hypertension
Valvular disease
Plan
Start patient Tylenol
Pain control
Start patient on beta-mara. Increase dose.
Recent urinary tract infection E. coli
Continue with Levaquin adjust dose to 500 mg
Continue the home medication
DVT prophylaxis with Lovenox
dnr noted
I spent a total of 80 minutes with the patient or on the floor. More than 50% of this time involved counseling and coordination of care.
Original Note:
Family Physician
-
Family Physician: Misa Castañeda
Chief Complaint
-
fall
History of Present Illness
Patient with history of dementia, hypertension, iron deficiency anemia, GERD, right bundle branch block, aortic stenosis, history of vertebral compression fracture presented to us with unwitnessed fall .patient is confused .she does not know why she
is here. Patient denied any back pain, hip pain, any lower extremities pain. Patient denied any headache, dizziness or syncope. Patient denies any fever, chills, chest pain, short of breath. Patient denied any abdominal pain, nausea, vomiting or
diarrhea. Patient denies any dysuria, hematuria.
, patient was found to be in SVT, for which she was given Cardizem 5 mg IV with improved heart rate, along with IV fluids. Patient was noted SVTs in the ER. She received a dose of metoprolol in ER. Admitted for further management
Medical History
Past Medical History
Past Medical History: Reports Other
Additional Past Medical History:
Hypertension
Osteoporosis
2. Iron deficiency anemia
GERD
Hiatal hernia
Balance disorder
Right bundle branch block
Severe aortic stenosis
Macular degeneration
Mitral regurgitation
Murmur
Macular degeneration
Past Surgical History: Reports Other
Additional Past Surgical History:
Right inguinal hernia repair
[place] teeth extraction
I&D of abscess
Appendectomy
Bilateral cataract surgery
Social History
Tobacco: Non-smoker
Alcohol: None
Drug: None
Living: Assisted Living
Family History
Family History: Not pertinent
Allergies / Home Medications
Allergies reflects when Allergies were last updated in [facility].
Home Medications with original date entered in [facility]
Allergy/Medication List:
Allergies
Allergy/AdvReac Type Severity Reaction Status Date / Time
No Known Allergies Allergy Verified 04/15/24 13:14
Home Medications
coenzyme Q10 100 mg capsule (Co Q-10) 100 mg PO DAILY Supplement 12/31/22
omeprazole 20 mg capsule,delayed release 20 mg PO DAILY GERD 12/31/22
vit C 250 mg-vit E 90 mg-zinc 40 mg-copper 1 [id number] capsule (PreserVision AREDS-2) 1 cap PO DAILY Supplement 12/31/22
aspirin 81 mg chewable tablet (Children's Aspirin) 81 mg PO DAILY Blood Clot Prevention/Tx 08/29/23
Saccharomyces boulardii 250 mg capsule (Florastor) 250 mg PO DAILY 04/14/24
acetaminophen 325 mg tablet 650 mg PO Q6HPRN PRN Mild Pain / Temp > 100.4 04/14/24
ferrous sulfate 325 mg (65 mg iron) tablet 325 mg PO BID 04/14/24
guaifenesin 100 mg/5 mL oral liquid 300 mg PO QID 04/14/24
ipratropium 0.5 mg-albuterol 3 mg (2.5 mg base)/3 mL nebulization soln 3 ml inhalation R TID 04/14/24
levofloxacin 750 mg tablet 750 mg PO DAILY 7 days #7 tabs 04/14/24
metoprolol tartrate 25 mg tablet 12.5 mg PO BID 04/14/24
sennosides 8.6 mg-docusate sodium 50 mg tablet (Senna-S) 2 tab-cap PO DAILYPRN PRN constipation 04/14/24
vitamin B complex 1 tab PO DAILY 04/14/24
Review of Systems
-
Constitutional: Reports No Symptoms
EENT: Reports No Symptoms
Respiratory: Reports No Symptoms
Cardiac: Reports No Symptoms
Abdomen/GI: Reports No Symptoms
: Reports No Symptoms
Musculoskeletal: Reports No Symptoms
Skin: Reports No Symptoms
Neurological: Reports No Symptoms
Endocrine: Reports No Symptoms
Hematologic/Lymphatic: Reports No Symptoms
Psych: Reports No Symptoms
Physical Exam
Vital Signs
Vital Signs
Temp Pulse Resp BP Pulse Ox
98.6 F 84 29 121/72 94
04/15/24 13:17 04/15/24 14:45 04/15/24 14:45 04/15/24 14:45 04/15/24 13:17
Physical Exam
General: Well Developed, Well Nourished and No Apparent Distress
HEENT: NormoCephalic, Moist mucous membranes and Atraumatic
Respiratory: Clear
Cardiac: S1/S2 and Regular Rhythm; No Murmur or Rub
GI: Soft, Non Tender, Non Distended and Normal Bowel Sounds; No Organomegaly
Rectal: Deferred by Provider
Musculoskeletal: No Clubbing, No Cyanosis and No Edema
Skin: No Rash
Neuro: Nonfocal/grossly intact
Psych: Confused
Laboratory Results
-
04/15/24 13:16
04/15/24 13:16
Laboratory Results
Total Bilirubin 0.8 mg/dl (0.2-1.3) 04/15/24 13:16
AST 93 U/L (14-36) H 04/15/24 13:16
ALT 114 U/L (0-35) H 04/15/24 13:16
Alkaline Phosphatase 212 U/L (38-126) H 04/15/24 13:16
Data Reviewed
-
Diagnostic Radiology: Report Reviewed by me
Lab Data: Labs Reviewed by me
Impression/Plan
-
# Back pain secondary to compression fracture in setting of recent falls
-Lumbar spine x-ray with impression of Marked T10 vertebral compression fracture, age indeterminate at this point but significantly increased in comparison to relative remote prior radiograph January 15, 2013
-Hip x-ray with impression Degenerative changes of both hips, left greater than right. Likely diffuse osteopenia.No findings to confirm recent cortical fracture.
-PT/OT consulted
-obtain orthostatics
-Tylenol ATC
# Intermittent SVT
-EKG with sinus rhythm
-Patient received a IV Lopressor, as well as oral metoprolol
-oral metoprolol increased from12.5 to 25 continued
# Leukocytosis likely stress reaction
-WBCs 12.8 patient is afebrile
Continue to monitor
# Chronic hyponatremia
-Sodium 134
-Continue to monitor
# Chronic LFT elevation
-AST 34, ALT 114, ALP 212
-denied abdominal pain
-ctm
#GERD
-PPI continued
#iron def anemia
-ferrous sulfate continued
DVT ppx: Lovenox
Code: patient is DNR as per Daughter
[2024-04-15] MEDS: DUONEB INH (22:36)
[2024-04-15] MEDS: NSS 1000 IV (22:52)
[2024-04-15] MEDS: TYLENOL 1000 MG PO (22:55)
[2024-04-15] MEDS: FEOSOL 325 MG PO (22:55)
[2024-04-15] MEDS: LOVENOX 40 MG SC (22:55)
[2024-04-16] VITALS (8 sets, daily range): BP systolic 127–145; BP diastolic 72–88; PULSE 74; O2SAT 94–95
--- NOTE | 2024-04-16 05:55 | PTCARENOTE ---
late entry 2300-pt admitted to 411-1, placed on tele #[id number]. attempted to orient to room and call morris but pt only Ox1-2. Call morris within reach, admission assessment completed.
[2024-04-16] MEDS: DUONEB 3 ML INH (07:38)
[2024-04-16 07:57] LABS: Hematocrit 36.1 % (37.0-47.0); Mean Corp Hgb Conc. 33.2 g/dL (33.0-37.0); Mean Corpuscular Hgb 29.1 pg (27.0-31.0); Mean Corpuscular Volume 87.6 fL (81.0-99.0); Mean Platelet Volume 9.9 fL (7.4-10.4); Platelet Count 266 10^3/uL (130-400); Red Blood Cell Count 4.12 10^6/uL (4.20-5.40); Red Cell Dist. Width 14.1 % (11.5-14.5); White Blood Cell Count 7.2 10^3/uL (4.8-10.8)
[2024-04-16 08:18] LABS: Troponin I 0.077 ng/ml
[2024-04-16 08:35] LABS: Blood Urea Nitrogen 23 mg/dl (7-17); Calcium 9.2 mg/dl (8.4-10.2); Carbon Dioxide 22 mmol/L (22-30); Chloride 104 mmol/L (98-107); Estimated Creatinine Clearance 53 ml/min; Glucose 90 mg/dl (70-99); HDL Cholesterol 58 mg/dl; LDL Cholesterol, Calculated 82 mg/dl; Magnesium 2.1 mg/dl (1.6-2.3); Potassium 3.6 mmol/L (3.5-5.1); Sodium 135 mmol/L (135-145); Total Cholesterol 158 mg/dl (50-199); Triglyceride 90 mg/dl (10-149); Very Low Density Lipoprotein 18 mg/dl (0-30); eGFR > 60.00
[2024-04-16 08:54] LABS: TSH Reflex To Free T4 2.94 uIU/ml (0.47-4.68)
[2024-04-16] MEDS: LOW STRENGTH ASPIRIN 81 MG PO (09:09)
[2024-04-16] MEDS: OCUVITE SOFTGEL 1 CAP PO (09:09)
[2024-04-16] MEDS: FLORASTOR 250 MG PO (09:10)
[2024-04-16] MEDS: TYLENOL 1000 MG PO ×3 (09:10→20:49)
[2024-04-16] MEDS: PROTONIX 40 MG PO (09:10)
[2024-04-16] MEDS: LOPRESSOR 25 MG PO ×2 (09:10→20:49)
[2024-04-16] MEDS: FEOSOL 325 MG PO ×2 (09:10→20:49)
[2024-04-16] MEDS: B COMPLEX w/VITAMIN C 1 CAPLET PO (09:10)
--- NOTE | 2024-04-16 10:41 | W.PN.HOSP.TC ---
Today's Communication/Plan
-
Await rehab evaluation
Continue with antibiotic
KCl
Monitor heart rate
Assessment / Plan
Assessment / Plan
General: cachetic, and No Apparent Distress
HEENT: NormoCephalic, Moist mucous membranes and Atraumatic
Respiratory: Clear
Cardiac: S1/S2 and Regular Rhythm; No Murmur or Rub
GI: Soft, Non Tender, Non Distended and Normal Bowel Sounds; No Organomegaly
Rectal: Deferred by Provider
Musculoskeletal: No Clubbing, No Cyanosis and No Edema
Skin: No Rash
Neuro: Nonfocal/grossly intact, apparent dementia
Psych: Confused
# Back pain secondary to compression fracture in setting of recent falls
-Lumbar spine x-ray with impression of Marked T10 vertebral compression fracture, age indeterminate at this point but significantly increased in comparison to relative remote prior radiograph January 15, 2013
-Hip x-ray with impression Degenerative changes of both hips, left greater than right. Likely diffuse osteopenia.No findings to confirm recent cortical fracture.
-PT/OT consulted
-Tylenol ATC
# Intermittent SVT
# Elevated troponin likely secondary to above
-EKG with sinus rhythm
-Patient received a IV Lopressor, as well as oral metoprolol
-oral metoprolol increased from12.5 to 25 milligram twice daily
-Trend troponin for now. Monitor electrolytes. Try to keep K greater than 4 and mag greater than 2.
# Leukocytosis likely stress reaction versus UTI E. coli
-Leukocytosis resolved. Continue with antibiotics.
Continue to monitor
# Chronic hyponatremia
-Sodium 134
-Continue to monitor
# Chronic transaminitis
-denied abdominal pain
-ctm. Outpatient follow-up with PCP.
#GERD
-PPI continued
#iron def anemia
-ferrous sulfate continued
DVT ppx: Lovenox
Code: patient is DNR as per Daughter
Anticipated Discharge: 24 - 48 hours
Subjective/Interval History
-
Date of Service: April 16, 2024
Remains confused due to agitation
Afebrile
No severe SVT overnight
Remains in normal sinus rhythm
Denies any chest pain or palpitations
Objective Data
-
Labs:
Laboratory Results
04/16/24
07:21
WBC 7.2
Hgb 12.0
Hct 36.1 L
Plt Count 266
Sodium 135
Potassium 3.6
Chloride 104
Carbon Dioxide 22
BUN 23 H
Creatinine 0.6
Glucose 90
Calcium 9.2
Vital Signs:
Vital Signs
Temp Pulse Resp BP Pulse Ox
97.6 F 75 18 127/72 98
04/16/24 07:40 04/16/24 07:42 04/16/24 07:42 04/16/24 07:40 04/16/24 08:20
I&O
04/15/24 04/16/24 04/17/24
06:59 06:59 06:59
Intake Total 700 / 700
Balance 700 / 700
Data Reviewed
-
Total Time Spent with Patient (in minutes): 55
[2024-04-16] MEDS: KCL ELIXIR 40 MEQ PO (11:08)
[2024-04-16 12:04] LABS: Troponin I 0.071 ng/ml
[2024-04-16] MEDS: KEFLEX 500 MG PO ×3 (13:35→20:49)
[2024-04-16] MEDS: DUONEB INH (14:16)
--- NOTE | 2024-04-16 16:04 | CM ---
Initial assessment completed. Patient is 88-year-old female past medical history of dementia, hypertension, suspected ambulatory dysfunction, osteopenia [facility] she was found to be unwitnessed falls. Pt currently
confused, not sure why she is in the hospital.
CM spoke w/ pt's daughter/ POA, Kimberley. Patient is a personal care resident at [facility]. Per Kimberley, patient has been using a WC since August ans has been using RW during physical therapy. Pt is independent w/ ADLs except for bathing. Patient
has been needing assistance recently. Patient's memory has been declining per Kimberley.
Patient prev was at [facility]F in August and [facility] in the past as well. Patient is current w/ therapy at [facility]. Kimberley believes it is [facility] but is not sure.
PCP: Dr. Castañeda
Pharmacy: [facility]
Therapy evaluated patient and is recommending skilled rehab at this time. CM discussed w/ Kimberley rehab recommendation. Kimberley agreed patient has declined physically and wondering due to her getting sick, if that factored into her weakness.
Kimberley inquired if [facility] will be able to provide therapy instead of patient going to a SNF. SHRUTHI was transparent stating that [facility] will probably want patient to go to rehab first before they accept her back considering she is not at her
PLOF and is a max assist x2 at this time. Per chart, patient is w/ a compression fx relating to a recent fall.
Patient is currently admitted as OBS, CARRION form reviewed w/ Kimberley. Kimberley shared she is aware Medicare will not cover rehab if pt remains OBS and is hoping pt can be made IP prior to d/c. Kimberley agreeable to [facility] and [facility]
facilities for rehab. [facility].
Plan: SNF recommended. CM placed referrals to preferred facilities
[2024-04-16] MEDS: LOVENOX 40 MG SC (16:56)
[2024-04-17] VITALS (7 sets, daily range): BP systolic 118–150; BP diastolic 71–98; PULSE 90; O2SAT 95
[2024-04-17] MEDS: OCUVITE SOFTGEL 1 CAP PO (08:21)
[2024-04-17] MEDS: TYLENOL 1000 MG PO ×3 (08:27→20:19)
[2024-04-17] MEDS: PROTONIX 40 MG PO (08:28)
[2024-04-17] MEDS: KEFLEX 500 MG PO ×4 (08:28→20:19)
[2024-04-17] MEDS: FLORASTOR 250 MG PO (08:28)
[2024-04-17] MEDS: LOPRESSOR 25 MG PO ×2 (08:28→20:20)
[2024-04-17] MEDS: B COMPLEX w/VITAMIN C 1 CAPLET PO (08:28)
[2024-04-17] MEDS: LOW STRENGTH ASPIRIN 81 MG PO (08:28)
[2024-04-17] MEDS: FEOSOL 325 MG PO ×2 (08:30→20:20)
[2024-04-17 08:34] LABS: Blood Urea Nitrogen 18 mg/dl (7-17); Calcium 9.1 mg/dl (8.4-10.2); Carbon Dioxide 22 mmol/L (22-30); Chloride 104 mmol/L (98-107); Estimated Creatinine Clearance 53 ml/min; Glucose 97 mg/dl (70-99); Sodium 133 mmol/L (135-145); eGFR > 60.00
--- NOTE | 2024-04-17 11:14 | W.PN.HOSP.TC ---
Addendum entered and electronically signed by Rajinder Putnam MD 04/17/24 14:49:
Finally was able to get in touch with daughter. Discussed patient care in detail.
Addendum entered and electronically signed by Rajinder Putnam MD 04/17/24 14:26:
Returned daughter call back. [place] per Operational Assistant [place] response.
Addendum entered and electronically signed by Rajinder Putnam MD 04/17/24 12:40:
called daughter to update. no response. left voicemail for callback.
Original Note:
Today's Communication/Plan
-
Echo in the morning
Check electrolytes and replete aggressively
Pain control
Out of bed PT/OT
Assessment / Plan
Assessment / Plan
General: cachetic, and No Apparent Distress
HEENT: NormoCephalic, Moist mucous membranes and Atraumatic
Respiratory: Clear
Cardiac: S1/S2 and Regular Rhythm; No Murmur or Rub
GI: Soft, Non Tender, Non Distended and Normal Bowel Sounds; No Organomegaly
Rectal: Deferred by Provider
Musculoskeletal: No Clubbing, No Cyanosis and No Edema
Skin: No Rash
Neuro: Nonfocal/grossly intact, apparent dementia
Psych: Confused
# Back pain secondary to compression fracture in setting of recent falls
-Lumbar spine x-ray with impression of Marked T10 vertebral compression fracture, age indeterminate at this point but significantly increased in comparison to relative remote prior radiograph January 15, 2013
-Hip x-ray with impression Degenerative changes of both hips, left greater than right. Likely diffuse osteopenia.No findings to confirm recent cortical fracture.
-PT/OT consulted
-Tylenol ATC
# Intermittent SVT
# Elevated troponin likely secondary to above
-EKG with sinus rhythm
-Patient received a IV Lopressor, as well as oral metoprolol
-oral metoprolol increased from12.5 to 25 milligram twice daily
-Trend troponin for now. Monitor electrolytes. Try to keep K greater than 4 and mag greater than 2.
-Check echo in the morning
# Leukocytosis likely stress reaction versus UTI E. coli
-Leukocytosis resolved. Pansensitive urine culture results. DC Levaquin and continue patient on Keflex.
Continue to monitor
# Chronic hyponatremia
-Sodium 133
-Continue to monitor
# Chronic transaminitis
-denied abdominal pain
-ctm. Outpatient follow-up with PCP.
#GERD
-PPI continued
#iron def anemia
-ferrous sulfate continued
DVT ppx: Lovenox
Code: patient is DNR as per Daughter
PT/OT SNF. Case management aware.
Anticipated Discharge: 24 - 48 hours
Subjective/Interval History
-
Date of Service: April 17, 2024
eating breakfast
states of lower back pain
Objective Data
-
Labs:
Laboratory Results
04/17/24
07:15
Sodium 133 L
Potassium 4.0
Chloride 104
Carbon Dioxide 22
BUN 18 H
Creatinine 0.6
Glucose 97
Calcium 9.1
Vital Signs:
Vital Signs
Temp Pulse Resp BP Pulse Ox
97.7 F 88 18 150/93 97
04/17/24 07:35 04/17/24 08:28 04/17/24 07:35 04/17/24 07:35 04/17/24 07:35
I&O
04/16/24 04/17/24 04/18/24
06:59 06:59 06:59
Intake Total 700 / 700 1180 / 1180
Balance 700 / 700 1180 / 1180
Data Reviewed
-
Total Time Spent with Patient (in minutes): 55
[2024-04-17 11:44] LABS: Phosphorus 3.7 mg/dl (2.5-4.5)
--- NOTE | 2024-04-17 16:19 | SUR.OPER ---
Patient returned from OR with no complaints of pain. Voided large amount of blood tinged urine. Call morris within reach.
[2024-04-17] MEDS: LOVENOX 40 MG SC (17:03)
[2024-04-18] VITALS (7 sets, daily range): BP systolic 105–144; BP diastolic 65–86; PULSE 91; O2SAT 96
[2024-04-18] MEDS: OCUVITE SOFTGEL 1 CAP PO (08:28)
[2024-04-18] MEDS: TYLENOL 1000 MG PO ×3 (08:28→21:07)
[2024-04-18] MEDS: B COMPLEX w/VITAMIN C 1 CAPLET PO (08:28)
[2024-04-18] MEDS: LOPRESSOR 25 MG PO ×2 (08:28→20:23)
[2024-04-18] MEDS: PROTONIX 40 MG PO (08:28)
[2024-04-18] MEDS: FEOSOL 325 MG PO ×2 (08:28→20:23)
[2024-04-18] MEDS: KEFLEX 500 MG PO ×4 (08:28→21:07)
[2024-04-18] MEDS: FLORASTOR 250 MG PO (08:28)
[2024-04-18] MEDS: LOW STRENGTH ASPIRIN 81 MG PO (08:28)
[2024-04-18 09:26] LABS: Blood Urea Nitrogen 15 mg/dl (7-17); Calcium 9.6 mg/dl (8.4-10.2); Carbon Dioxide 27 mmol/L (22-30); Chloride 102 mmol/L (98-107); Estimated Creatinine Clearance 45 ml/min; Glucose 94 mg/dl (70-99); Potassium 4.4 mmol/L (3.5-5.1); Sodium 134 mmol/L (135-145); eGFR > 60.00
--- NOTE | 2024-04-18 11:17 | W.PN.HOSP.TC ---
Today's Communication/Plan
-
ECHO pending
monitor bp
po abx
await placement
Assessment / Plan
Assessment / Plan
General: cachetic, and No Apparent Distress
HEENT: NormoCephalic, Moist mucous membranes and Atraumatic
Respiratory: Clear
Cardiac: S1/S2 and Regular Rhythm; No Murmur or Rub
GI: Soft, Non Tender, Non Distended and Normal Bowel Sounds; No Organomegaly
Rectal: Deferred by Provider
Musculoskeletal: No Clubbing, No Cyanosis and No Edema
Skin: No Rash
Neuro: Nonfocal/grossly intact, apparent dementia
Psych: Confused
# Back pain secondary to compression fracture in setting of recent falls
-Lumbar spine x-ray with impression of Marked T10 vertebral compression fracture, age indeterminate at this point but significantly increased in comparison to relative remote prior radiograph January 15, 2013
-Hip x-ray with impression Degenerative changes of both hips, left greater than right. Likely diffuse osteopenia.No findings to confirm recent cortical fracture.
-PT/OT consulted
-Tylenol ATC
# Intermittent NSVT
# Elevated troponin likely secondary to above
-EKG with sinus rhythm
-Patient received a IV Lopressor, as well as oral metoprolol
-oral metoprolol increased from12.5 to 25 milligram twice daily
-Trend troponin for now. Monitor electrolytes. Try to keep K greater than 4 and mag greater than 2.
-ECHO pending
# Leukocytosis likely stress reaction versus UTI E. coli
-Leukocytosis resolved. Pansensitive urine culture results. DC Levaquin and continue patient on Keflex.
Continue to monitor
# Chronic hyponatremia
-Sodium 134
-Continue to monitor
# Chronic transaminitis
-denied abdominal pain
-ctm. Outpatient follow-up with PCP.
#GERD
-PPI continued
#iron def anemia
-ferrous sulfate continued
DVT ppx: Lovenox
Code: patient is DNR as per Daughter
Update dtr over the phone in details on 04/17/24
PT/OT SNF. Case management aware.
Anticipated Discharge: 24 - 48 hours
Subjective/Interval History
-
Date of Service: April 18, 2024
remains confused
Objective Data
-
Labs:
Laboratory Results
04/18/24
08:36
Sodium 134 L
Potassium 4.4
Chloride 102
Carbon Dioxide 27
BUN 15
Creatinine 0.7
Glucose 94
Calcium 9.6
Vital Signs:
Vital Signs
Temp Pulse Resp BP Pulse Ox
98.1 F 81 16 144/86 97
04/18/24 07:45 04/18/24 07:45 04/18/24 07:45 04/18/24 07:45 04/18/24 07:45
I&O
04/17/24 04/18/24 04/19/24
06:59 06:59 06:59
Intake Total 1180 / 1180 1720 / 1720
Balance 1180 / 1180 1720 / 1720
--- NOTE | 2024-04-18 15:37 | CM ---
Called [facility] and spoke with Roxie
States unable to accept back to personal care & would need to go to SNF as rec by PT
LOC change to inpatient 04/18
Spoke with [place]-does not qualify [facility] waiver
Spoke with daughter Kimberley COEHLO & updated
IMM explained to daughter & verbalize understanding
Referrals entered in [facility]port. Prefers [facility]
PLAN: SNF, pending bed availability
[2024-04-18] MEDS: LOVENOX 40 MG SC (17:18)
[2024-04-19] VITALS (7 sets, daily range): BP systolic 99–145; BP diastolic 61–81; PULSE 79–89; O2SAT 96
[2024-04-19] MEDS: OCUVITE SOFTGEL 1 CAP PO (08:30)
[2024-04-19] MEDS: FLORASTOR 250 MG PO (08:30)
[2024-04-19] MEDS: LOPRESSOR 25 MG PO ×2 (08:30→19:47)
[2024-04-19] MEDS: PROTONIX 40 MG PO (08:30)
[2024-04-19] MEDS: B COMPLEX w/VITAMIN C 1 CAPLET PO (08:30)
[2024-04-19] MEDS: LOW STRENGTH ASPIRIN 81 MG PO (08:30)
[2024-04-19] MEDS: KEFLEX 500 MG PO ×4 (08:30→21:05)
[2024-04-19] MEDS: FEOSOL 325 MG PO ×2 (08:31→19:47)
[2024-04-19] MEDS: TYLENOL 1000 MG PO ×3 (08:31→21:04)
--- NOTE | 2024-04-19 11:48 | W.PN.HOSP.TC ---
Today's Communication/Plan
-
await placement
oob
pt/ot
labs in am
Assessment / Plan
Assessment / Plan
General: cachetic, and No Apparent Distress
HEENT: NormoCephalic, Moist mucous membranes and Atraumatic
Respiratory: Clear
Cardiac: S1/S2 and Regular Rhythm; No Murmur or Rub
GI: Soft, Non Tender, Non Distended and Normal Bowel Sounds; No Organomegaly
Rectal: Deferred by Provider
Musculoskeletal: No Clubbing, No Cyanosis and No Edema
Skin: No Rash
Neuro: Nonfocal/grossly intact, apparent dementia
Psych: Confused
# Back pain secondary to compression fracture in setting of recent falls
-Lumbar spine x-ray with impression of Marked T10 vertebral compression fracture, age indeterminate at this point but significantly increased in comparison to relative remote prior radiograph January 15, 2013
-Hip x-ray with impression Degenerative changes of both hips, left greater than right. Likely diffuse osteopenia.No findings to confirm recent cortical fracture.
-PT/OT consulted
-Tylenol ATC
# Intermittent NSVT
# Elevated troponin likely secondary to above
-EKG with sinus rhythm
-Patient received a IV Lopressor, as well as oral metoprolol
-oral metoprolol increased from12.5 to 25 milligram twice daily
-Trend troponin for now. Monitor electrolytes. Try to keep K greater than 4 and mag greater than 2.
-ECHO Normal biventricular size and systolic function without regional wall motion abnormality. Stage II diastolic dysfunction. Severe aortic stenosis. No significant change since the prior study of 08/31/2023.
# Leukocytosis likely stress reaction versus UTI E. coli
-Leukocytosis resolved. Pansensitive urine culture results. DC Levaquin and continue patient on Keflex.
Continue to monitor
# Chronic hyponatremia
-Sodium 134
-Continue to monitor
# Chronic transaminitis
-denied abdominal pain
-ctm. Outpatient follow-up with PCP.
#GERD
-PPI continued
#iron def anemia
-ferrous sulfate continued
DVT ppx: Lovenox
Code: patient is DNR as per Daughter
Update dtr over the phone in details on 04/17/24
PT/OT SNF. Case management aware. Will require 3mn stay.
Anticipated Discharge: > 48 hours
Subjective/Interval History
-
Date of Service: April 19, 2024
no overnight events
pleasantly confused
denies back pain
Objective Data
-
Vital Signs:
Vital Signs
Temp Pulse Resp BP Pulse Ox
98.0 F 70 16 106/61 95
04/19/24 11:22 04/19/24 11:22 04/19/24 11:22 04/19/24 11:22 04/19/24 11:22
I&O
04/18/24 04/19/24 04/20/24
06:59 06:59 06:59
Intake Total 1720 / 1720 240 / 240
Balance 1720 / 1720 240 / 240
--- NOTE | 2024-04-19 12:04 | CM ---
Left message for [facility]
PLAN: SNF, pending bed availability
[2024-04-19] MEDS: LOVENOX 40 MG SC (17:24)
[2024-04-20] VITALS (8 sets, daily range): BP systolic 106–129; BP diastolic 61–68; PULSE 61–73; O2SAT 99
[2024-04-20 07:24] LABS: Blood Urea Nitrogen 16 mg/dl (7-17); Calcium 9.3 mg/dl (8.4-10.2); Carbon Dioxide 23 mmol/L (22-30); Chloride 105 mmol/L (98-107); Estimated Creatinine Clearance 53 ml/min; Glucose 101 mg/dl (70-99); Magnesium 2.1 mg/dl (1.6-2.3); Sodium 134 mmol/L (135-145); eGFR > 60.00
[2024-04-20] MEDS: FEOSOL 325 MG PO ×2 (09:33→21:18)
[2024-04-20] MEDS: LOW STRENGTH ASPIRIN 81 MG PO (09:33)
[2024-04-20] MEDS: OCUVITE SOFTGEL 1 CAP PO (09:33)
[2024-04-20] MEDS: PROTONIX 40 MG PO (09:33)
[2024-04-20] MEDS: LOPRESSOR 25 MG PO ×2 (09:33→21:19)
[2024-04-20] MEDS: TYLENOL 1000 MG PO ×3 (09:34→21:18)
[2024-04-20] MEDS: B COMPLEX w/VITAMIN C 1 CAPLET PO (09:34)
[2024-04-20] MEDS: FLORASTOR 250 MG PO (09:34)
[2024-04-20] MEDS: KEFLEX 500 MG PO ×4 (09:34→21:18)
--- NOTE | 2024-04-20 09:42 | PN.CDI ---
CDI
- -
CDI:
Physician Documentation Request
Admit Date: 04/18/24 08:19
Dear Doctor Indy,
Patient admitted for falls.
04/19 Hospitalist PN: 'Intermittent NSVT # Elevated troponin likely secondary to above -EKG with sinus rhythm'
Laboratory Tests
04/16/24 04/16/24
07:30 11:21
Troponin I 0.077 H* 0.071 H*
Please clarify the following regarding the documented troponin elevation:
Nonischemic myocardial injury
Lab abnormality
Other
Use of terms such as suspected, likely, concern for, or probable (associated with a specific diagnosis that is being evaluated, monitored, or treated as if it exists) are acceptable and can be coded in the inpatient setting, when documented at the
time of discharge.
Thank you,
Lesly Milton RN, BSN
CDI Specialist
Available via [place] text
Please use your independent medical judgment in providing your response.
--- NOTE | 2024-04-20 10:55 | W.PN.HOSP.TC ---
Today's Communication/Plan
-
await placement
cont toprol
complete abx course
await placement
Assessment / Plan
Assessment / Plan
General: cachetic, and No Apparent Distress
HEENT: NormoCephalic, Moist mucous membranes and Atraumatic
Respiratory: Clear
Cardiac: S1/S2 and Regular Rhythm; No Murmur or Rub
GI: Soft, Non Tender, Non Distended and Normal Bowel Sounds; No Organomegaly
Rectal: Deferred by Provider
Musculoskeletal: No Clubbing, No Cyanosis and No Edema
Skin: No Rash
Neuro: Nonfocal/grossly intact, apparent dementia
Psych: Confused
# Back pain secondary to compression fracture in setting of recent falls
-Lumbar spine x-ray with impression of Marked T10 vertebral compression fracture, age indeterminate at this point but significantly increased in comparison to relative remote prior radiograph January 15, 2013
-Hip x-ray with impression Degenerative changes of both hips, left greater than right. Likely diffuse osteopenia.No findings to confirm recent cortical fracture.
-PT/OT consulted
-Tylenol ATC
# Intermittent NSVT on admission
# Non ischemic myocardial injury
-EKG with sinus rhythm
-Patient received a IV Lopressor, as well as oral metoprolol
-oral metoprolol increased from12.5 to 25 milligram twice daily
- Monitor electrolytes. Try to keep K greater than 4 and mag greater than 2.
-ECHO Normal biventricular size and systolic function without regional wall motion abnormality. Stage II diastolic dysfunction. Severe aortic stenosis. No significant change since the prior study of 08/31/2023.
# Leukocytosis likely stress reaction versus UTI E. coli
-Leukocytosis resolved. Pansensitive urine culture results. DC Levaquin and continue patient on Keflex.
Continue to monitor
# Chronic hyponatremia
-Sodium 134
-Continue to monitor
# Chronic transaminitis
-denied abdominal pain
-ctm. Outpatient follow-up with PCP.
#GERD
-PPI continued
#iron def anemia
-ferrous sulfate continued
DVT ppx: Lovenox
Code: patient is DNR as per Daughter
Update dtr over the phone in details on 04/17/24
PT/OT SNF. Case management aware.
Anticipated Discharge: Today
Subjective/Interval History
-
Date of Service: April 20, 2024
no overnight event
intermittent back discomfort
Objective Data
-
Labs:
Laboratory Results
04/20/24
06:40
Sodium 134 L
Potassium 4.0
Chloride 105
Carbon Dioxide 23
BUN 16
Creatinine 0.5 L
Glucose 101 H
Calcium 9.3
Vital Signs:
Vital Signs
Temp Pulse Resp BP Pulse Ox
97.7 F 73 20 124/63 98
04/20/24 07:26 04/20/24 07:26 04/20/24 07:26 04/20/24 07:26 04/20/24 07:26
I&O
04/19/24 04/20/24 04/21/24
06:59 06:59 06:59
Intake Total 240 / 240 240 / 240 240 / 240
Balance 240 / 240 240 / 240 240 / 240
--- NOTE | 2024-04-20 12:12 | CM ---
Chart reviewed for d/c planning. Patient cont to need skilled rehab. Referrals prev placed in [facility]
CM spoke w/ Shakira/[facility] admissions regarding referral. Per Shakira, requesting for referral to be faxed as she does not see referral in [facility]. CM faxed referral to [phone]. CM will await determination
Plan: SNF; pending accepting facility
[2024-04-20] MEDS: LOVENOX 40 MG SC (16:59)
[2024-04-20] MEDS: DESENEX/MITRAZOL/ZEASORB 1 APPLIC TOPICAL (21:17)
[2024-04-21 07:30] VITALS: BP 122/102
[2024-04-21 09:04] LABS: Blood Urea Nitrogen 14 mg/dl (7-17); Calcium 9.5 mg/dl (8.4-10.2); Carbon Dioxide 20 mmol/L (22-30); Chloride 106 mmol/L (98-107); Estimated Creatinine Clearance 53 ml/min; Glucose 87 mg/dl (70-99); Magnesium 2.4 mg/dl (1.6-2.3); Potassium 4.5 mmol/L (3.5-5.1); Sodium 133 mmol/L (135-145); eGFR > 60.00
--- NOTE | 2024-04-21 09:48 | CM ---
CM spoke w/ Easley/[facility] admissions, patient has been accepted and able to admit today if stable.
SHRUTHI TT hospitalist making him aware of accepting facility for today, per Dr. Heredia, will see patient soon
SHRUTHI updated patient's daughter, Kimberley, who was pleased to hear patient has been accepted and can d/c today. Kimberley requested for the doctor to give her a call after he sees patient.
Patient will need ambulance transport
[facility]
Report: [phone]

Plan: D/c to [facility] today. Ambulance transport
[2024-04-21] MEDS: TYLENOL 1000 MG PO ×2 (09:53→16:58)
[2024-04-21] MEDS: FEOSOL 325 MG PO (09:53)
[2024-04-21] MEDS: OCUVITE SOFTGEL 1 CAP PO (09:53)
[2024-04-21] MEDS: KEFLEX 500 MG PO (09:53)
[2024-04-21] MEDS: DESENEX/MITRAZOL/ZEASORB 1 APPLIC TOPICAL (09:53)
[2024-04-21] MEDS: LOPRESSOR 25 MG PO (09:53)
[2024-04-21] MEDS: LOW STRENGTH ASPIRIN 81 MG PO (09:53)
[2024-04-21] MEDS: PROTONIX 40 MG PO (09:53)
[2024-04-21] MEDS: B COMPLEX w/VITAMIN C 1 CAPLET PO (09:53)
[2024-04-21] MEDS: FLORASTOR 250 MG PO (09:53)
[2024-04-21 11:00] VITALS: BP 120/70
[2024-04-21 11:50] VITALS: BP 125/75; BP 132/80; PULSE 83; O2SAT 97
[2024-04-21 12:06] VITALS: BP 125/75; BP 132/80; PULSE 83; O2SAT 97
--- NOTE | 2024-04-21 14:52 | W.PN.HOSP.TC ---
Addendum entered and electronically signed by Harley Heredia MD 04/21/24 17:33:
DgKimberley torres requested call with update, call placed and discussed (dgt currently living in [facility])
Original Note:
Today's Communication/Plan
-
dc to [facility] ([facility])
Assessment / Plan
Assessment / Plan
# Back pain secondary to compression fracture in setting of recent falls
-Lumbar spine x-ray with impression of Marked T10 vertebral compression fracture, age indeterminate at this point but significantly increased in comparison to relative remote prior radiograph January 15, 2013
-Hip x-ray with impression Degenerative changes of both hips, left greater than right. Likely diffuse osteopenia.No findings to confirm recent cortical fracture.
-PT/OT consulted
-Tylenol ATC
# Intermittent NSVT on admission
# Non ischemic myocardial injury
-EKG with sinus rhythm
-Patient received a IV Lopressor, as well as oral metoprolol
-oral metoprolol increased from12.5 to 25 milligram twice daily
- Monitor electrolytes. Try to keep K greater than 4 and mag greater than 2.
-ECHO Normal biventricular size and systolic function without regional wall motion abnormality. Stage II diastolic dysfunction. Severe aortic stenosis. No significant change since the prior study of 08/31/2023.
# Leukocytosis likely stress reaction versus UTI E. coli
-Leukocytosis resolved. Pansensitive urine culture results. DC Levaquin and continue patient on Keflex.
Continue to monitor
# Chronic hyponatremia
-Sodium 134
-Continue to monitor
# Chronic transaminitis
-denied abdominal pain
-ctm. Outpatient follow-up with PCP.
#GERD
-PPI continued
#iron def anemia
-ferrous sulfate continued
DVT ppx: Lovenox
Code: patient is DNR as per Daughter
Update dtr over the phone in details on 04/17/24
PT/OT SNF. Case management aware.
dc now
see dictated noteMore than 30 minutes spent in discharge including
Final examination of the patient
Summarizing hospital stay
Instructions for continuing care to all relevant caregivers
Preparation of discharge records, prescriptions, and referral forms
Total time spent (in minutes): 45
Anticipated Discharge: Today
Subjective/Interval History
-
Date of Service: April 21, 2024
Repeated falls at home, awake, alert
Objective Data
-
Labs:
Laboratory Results
04/21/24
07:27
Sodium 133 L
Potassium 4.5
Chloride 106
Carbon Dioxide 20 L
BUN 14
Creatinine 0.6
Glucose 87
Calcium 9.5
Vital Signs:
Vital Signs
Temp Pulse Resp BP Pulse Ox
97.6 F 69 16 122/102 98
04/21/24 07:30 04/21/24 07:30 04/21/24 07:30 04/21/24 07:30 04/21/24 13:35
I&O
04/20/24 04/21/24 04/22/24
06:59 06:59 06:59
Intake Total 240 / 240 960 / 960
Balance 240 / 240 960 / 960
Review of Systems
-
Unable to obtain full review of systems at this time due to: Dementia (mild)
History Source: Patient
Constitutional: Reports No Symptoms
EENT: Reports No Symptoms Reported
Respiratory: Reports No Symptoms
Cardiac: Reports No Symptoms
Genitourinary: Reports No Symptoms
Musculoskeletal: Reports Muscle Weakness (nonambulatory)
Physical Exam
-
General: Well Developed, Well Nourished and No Apparent Distress
HEENT: Normocephalic, Atraumatic and Moist Mucous Membranes
Respiratory: Clear to Auscultation; Negative Wheezes, Rales or Rhonchi
Cardiac: Regular Rhythm and S1/S2
GI: Soft, Nontender and Nondistended
Musculoskeletal: No Clubbing, No Cyanosis and No Edema
--- NOTE | 2024-04-21 15:04 | W.DS.TRANS ---
DC Summary - Sled Maker
-
Discharge Instructions:
Discharge Diagnosis/Procedures Ambulatory Dysfunction, chronic back pain, T10
compression fx
Diet Low Cholesterol
Activity With assistance
Driving Restrictions No driving
Bathing Restrictions None
Blood Work CBC, CMP, UA in 1-2 weeks
Instructions:
Stand-Alone Forms:
Changes to Home Medications: Yes
Discharge Medications:
DC Medications w/original date entered in [employer]
coenzyme Q10 100 mg capsule (Co Q-10) 100 mg PO DAILY Supplement 12/31/22
omeprazole 20 mg capsule,delayed release 20 mg PO DAILY GERD 12/31/22
vit C 250 mg-vit E 90 mg-zinc 40 mg-copper 1 [id number]-[id number] capsule (PreserVision AREDS-2) 1 cap PO DAILY Supplement 12/31/22
aspirin 81 mg chewable tablet (Children's Aspirin) 81 mg PO DAILY Blood Clot Prevention/Tx 08/29/23
Saccharomyces boulardii 250 mg capsule (Florastor) 250 mg PO DAILY Supplement 04/14/24
acetaminophen 325 mg tablet 650 mg PO Q6HPRN PRN Mild Pain / Temp > 100.4 04/14/24
ferrous sulfate 325 mg (65 mg iron) tablet 325 mg PO BID Supplement 04/14/24
sennosides 8.6 mg-docusate sodium 50 mg tablet (Senna-S) 2 tab-cap PO DAILYPRN PRN constipation 04/14/24
vitamin B complex 1 tab PO DAILY Supplement 04/14/24
bisacodyl 10 mg rectal suppository 10 mg DE [id number] PRN constipation #12 ea 04/21/24
metoprolol tartrate 25 mg tablet 25 mg PO BID #0 tabs 04/21/24
miconazole nitrate 2 % topical powder (Miconazorb AF) 1 applic topical BID #85 grams 04/21/24
Home Medication Changes
Metoprolol dose increased
Desenex to use for skin folds
Pending Results: No
--- NOTE | 2024-04-21 15:05 | PTCARENOTE ---
Addendum entered by Ada Garcia RN 04/21/24 18:24:
Patient left with ambulance crew. Discharge packet provided.
Original Note:
Report called to PETRONA Nolan at [facility]. Ambulance scheduled for transport at 1700.
[2024-04-21 15:27] VITALS: BP 108/61
== END 2024-04-21 18:00 | DRG 552 ==
LOC: 4 EAST ACU 08:19
PROVIDERS: Registered Nurse; ADMITTING PHYSICIAN Hospitalist; ATTENDING PHYSICIAN Internal Medicine; EMERGENCY PHYSICIAN Emergency Medicine; FAMILY PHYSICIAN Nurse Practitioner Family
DX: S22.070A Wedge compression fracture of T9-T10 vertebra, initial encounter for closed fracture (principal); I47.20 Ventricular tachycardia, unspecified; I5A Non-ischemic myocardial injury (non-traumatic); N39.0 Urinary tract infection, site not specified; E87.1 Hypo-osmolality and hyponatremia; I47.10 Supraventricular tachycardia, unspecified; R64 Cachexia; M81.0 Age-related osteoporosis without current pathological fracture; B96.20 Unspecified Escherichia coli [E. coli] as the cause of diseases classified elsewhere; K21.9 Gastro-esophageal reflux disease without esophagitis; D50.9 Iron deficiency anemia, unspecified; Z66 Do not resuscitate; I10 Essential (primary) hypertension; W19.XXXA Unspecified fall, initial encounter; F03.A0 Unspecified dementia, mild, without behavioral disturbance, psychotic disturbance, mood disturbance, and anxiety; I45.10 Unspecified right bundle-branch block; H35.30 Unspecified macular degeneration; I08.0 Rheumatic disorders of both mitral and aortic valves; Z79.82 Long term (current) use of aspirin; Z80.0 Family history of malignant neoplasm of digestive organs; M16.0 Bilateral primary osteoarthritis of hip; G89.29 Other chronic pain; Z68.21 Body mass index [BMI] 21.0-21.9, adult
CPT/HCPCS: 72110; 73502; 80048; 80053; 80061; 83735; 84100; 84443; 84484; 85025; 85027; 87070; 93005; 93306; 94640; 96374; 97163; 97166; 97530; 97535; 99285